=== PATIENT | male | born 1935 | race Caucasian/White ===

== ENCOUNTER → 2016-12-06 | Outpatient (REF) | payer OTHER ==
[2016-12-06 20:22] LABS: ALBUMIN/GLOBULIN RATIO 1.43 (1.00-1.93); BILIRUBIN,TOTAL 0.3 MG/DL (0.2-1.0); CALCIUM LEVEL 10.4 MG/DL (8.8-10.2); CREATININE FOR GFR 1.67 MG/DL (0.70-1.30); GLOMERULAR FILTRATION RATE 42.4 (>35); POTASSIUM SERUM 4.9 MEQ/L (3.5-5.1); TOTAL PROTEIN 6.8 GM/DL (6.4-8.2)
== END ==
LOC: M SFHCADAM 11:58
PROVIDERS: ATTEND Family Medicine
DX: I10 Essential (primary) hypertension (principal)
CPT/HCPCS: 80053; G0463

== ENCOUNTER 2016-12-08 01:40 | Emergency (ER) | payer OTHER ==
[2016-12-08] MEDS ORDERED: LISINOPRIL 10 MG TAB As Ordered ONE (02:28)
--- NOTE | 2016-12-08 05:39 | EDDOCDS ---
Nurse's Notes [facility] Name: Domenico Granados Age: 81 yrs Sex: Male : 1935 Arrival Date: 12/08/2016 Time: 01:40 Bed 5 Private MD: Diagnosis: Essential (primary) hypertension Presentation: 12/08 01:48 Presenting complaint: Patient states: he has been having problems getting his blood cz pressure regulated has spoken with his provider and they halved his dose of pressure medications. Adult Sepsis Screening: The patient does not have new or worsening altered mentation. Patient's respiratory rate is less than 22. Systolic blood pressure is greater than 100. Patient has a qSOFA score of 0- Negative Sepsis Screen. Suicide/Homicide risk assessment- the patient denies having any suicidal and/or homicidal ideations and does not present with any other emotional, behavioral or mental health complaints. Status: Patient is not a instructional support services director or dependent. Transition of care: patient was not received from another setting of care. 01:48 Acuity: RAMIREZ Level 3 cz 01:48 Method Of Arrival: Walkin/Carried/Asstd cz Triage Assessment: 01:53 General: Appears in no apparent distress. cz Historical: - Allergies: Milk/dairy products (Rash); - Home Meds: 1. aspirin 81 mg Oral chew 1 tab once daily 2. atenolol 50 mg oral tab once daily (Last dose: 12/07/2016 08:00) 3. lisinopril 10 mg Oral tab once daily (Last dose: 12/07/2016 18:00) 4. omeprazole 40 mg Oral cpDR 1 cap once daily 5. simvastatin 80 mg Oral tab daily 6. tamsulosin 0.4 mg oral cp24 1 cap once daily 7. triamterene-hydrochlorothiazid 37.5-25 mg Oral cap 1 cap once daily (Last dose: 12/07/2016 08:00) - PMHx: GERD; Hypertension; - PSHx: none; lung surgery right lobe; - Social history: Smoking status: Patient states former smoker of tobacco. No barriers to communication noted, The patient speaks fluent Panamanian, Speaks appropriately for age. - Family history: Not pertinent. - : The pt / caregiver states he / she is not on anticoagulants. Home medication list is obtained from family members. - Exposure Risk Screening:: None identified. Screenin:03 Screening information is obtained from the patient. Fall risk: No risks identified. cf2 Assistance ADL's: requires no assistance with activities of daily living. Abuse/DV Screen: The patient / caregiver reports he/she is: not in a situation that causes fear, pain or injury. Nutritional screening: No deficits noted. Advance Directives: Further advance directive information is declined. home support is adequate. Assessment: 03:03 General: Appears in no apparent distress, comfortable, Behavior is appropriate for age, cf2 cooperative. General: Denies fever, feeling ill, fatigue, chills. Pain: Denies pain. Neurological: No deficits noted. EENT: No deficits noted. Cardiovascular: No deficits noted. Respiratory: No deficits noted. GI: No deficits noted. : No deficits noted. Derm: No deficits noted. Musculoskeletal: No deficits noted. Injury Description: No known injury. 05:21 Reassessment: Patient appears in no apparent distress at this time. Patient denies pain cf2 at this time. Patient states symptoms have improved. Adult Sepsis Screening: The patient does not have new or worsening altered mentation. Patient's respiratory rate is less than 22. Systolic blood pressure is greater than 100. Patient has a qSOFA score of 0- Negative Sepsis Screen. Vital Signs: 01:53 BP 202 / 92; Pulse 67; Resp 16; Temp 96.1; Pulse Ox 97% on R/A; Weight 83.91 kg; Height cz 5 ft. 7 in. (170.18 cm); 01:53 Weight 71.21 kg; cz 02:31 BP 201 / 84 (auto/); cf2 03:06 BP 195 / 81 (auto/); cf2 03:13 Pulse 56 MON; Pulse Ox 98% ; cf2 03:30 BP 181 / 79 (auto/); cf2 03:30 Pulse 54 MON; Pulse Ox 97% ; cf2 03:39 Pulse 60 MON; Pulse Ox 97% ; cf2 04:26 BP 187 / 81; Pulse 58; Resp 18; Temp 97.6(TE); Pulse Ox 97% on R/A; kb5 05:21 BP 180 / 81; Pulse 61; Resp 16; Temp 98.0; Pulse Ox 94% on R/A; Pain 0/10; cf2 01:53 Body Mass Index 24.59 (71.21 kg, 170.18 cm) Vitals: 01:53 Log In Time: December 08, 2016 at 01:40. cz ED Course: 01:42 Patient visited by Maxwell Machado Reg. pm4 01:42 Patient moved to Waiting pm4 01:51 Triage Initiated cz 01:55 Patient moved to 5 cz 01:56 Pb Hull DO is Attending Physician. cs11 01:56 Patient visited by Pb Hull DO. cs11 02:23 Sangeetha De La Cruz RN is Primary Nurse. cf2 02:23 Patient visited by Sangeetha De La Cruz RN. cf2 02:55 Patient visited by Sangeetha De La Cruz RN. cf2 03:03 The patient / caregiver is instructed regarding the plan of care and ED course. Patient cf2 has correct armband on for positive identification. Placed in gown. Bed in low position. Call light in reach. Side rails up X 1. Side rails up X2. NIBP on. Property :Personal belongings accompany Pt. Door closed. Noise minimized. Visitors limited. Verbal reassurance given. Warm blanket given. Pillow given. 03:03 No IV's were initiated during this patient's visit. No procedures done that require cf2 assistance. 03:10 [facility] Payment Agreement was scanned into [employer] and attached to record. hs2 03:41 Patient visited by Sangeetha De La Cruz RN. cf2 03:41 Patient visited by Sangeetha De La Cruz RN. cf2 04:16 Patient visited by Sangeetha De La Cruz RN. cf2 04:27 Patient visited by Segun Hurst PCA. kb5 04:55 Patient visited by Sangeetha De La Cruz RN. cf2 05:17 Cody Rhodes MD is Referral Physician. cs11 05:20 Patient visited by Sangeetha De La Cruz RN. cf2 Administered Medications: 02:30 Drug: Lisinopril 10 mg [lisinopril 10 mg tablet (1 tabs)] Route: PO; cf2 05:22 Follow up: Response: No significant change. cf2 Order Results: There are currently no results for this order. Outcome: 05:18 Discharge ordered by Provider. cs11 05:21 Discharge Assessment: Patient awake, alert and oriented x 3. No cognitive and/or cf2 functional deficits noted. Patient verbalized understanding of disposition instructions. Patient awake and alert. Oriented to person, place and time. patient administered narcotics - no. The following High Risk Discharge criteria are identified: None. Discharged to home ambulatory, with family, with significant other. Condition: good Condition: stable Condition: improved. Discharge instructions given to patient, Instructed on discharge instructions, follow up and referral plans. medication usage. No special radiology studies were completed. 05:38 Patient left the ED. cf2 Signatures: Juan Miguel Ballard, RN RN cz Segun Hurst, SENIOR EDITOR SENIOR EDITOR kb5 Pb Hull, DO cs11 Deirrde Catalan, Reg Reg hs2 Sangeetha De La Cruz RN RN cf2 Maxwell Machado, Reg Reg pm4 ISABELA
--- NOTE | 2016-12-08 05:39 | EDDOCDS ---
Physician Documentation [facility] Name: Domenico Granados Age: 81 yrs Sex: Male : 1935 Arrival Date: 12/08/2016 Time: 01:40 Bed 5 Private MD: Disposition: 12/08/16 05:18 Discharged to Home/Self Care. Impression: Essential (primary) hypertension. - Condition is Stable. - Medication Reconciliation, Local Pharmacy Hours form. - Follow up: Cody Rhodes MD; When: Call to arrange an appointment; Reason: To establish care. - Problem is an ongoing problem. - Symptoms have improved. Historical: - Allergies: Milk/dairy products (Rash); - Home Meds: 1. aspirin 81 mg Oral chew 1 tab once daily 2. atenolol 50 mg oral tab once daily (Last dose: 12/07/2016 08:00) 3. lisinopril 10 mg Oral tab once daily (Last dose: 12/07/2016 18:00) 4. omeprazole 40 mg Oral cpDR 1 cap once daily 5. simvastatin 80 mg Oral tab daily 6. tamsulosin 0.4 mg oral cp24 1 cap once daily 7. triamterene-hydrochlorothiazid 37.5-25 mg Oral cap 1 cap once daily (Last dose: 12/07/2016 08:00) - PMHx: GERD; Hypertension; - PSHx: none; lung surgery right lobe; - Social history: Smoking status: Patient states former smoker of tobacco. No barriers to communication noted, The patient speaks fluent Wallisian, Speaks appropriately for age. - Family history: Not pertinent. - : The pt / caregiver states he / she is not on anticoagulants. Home medication list is obtained from family members. - Exposure Risk Screening:: None identified. Vital Signs: 12/08 01:53 BP 202 / 92; Pulse 67; Resp 16; Temp 96.1; Pulse Ox 97% on R/A; Weight 83.91 kg / cz 184.99 lbs; Height 5 ft. 7 in. (170.18 cm); 01:53 Weight 71.21 kg / 156.99 lbs; cz 02:31 BP 201 / 84 (auto/); cf2 03:06 BP 195 / 81 (auto/); cf2 03:13 Pulse 56 MON; Pulse Ox 98% ; cf2 03:30 BP 181 / 79 (auto/); cf2 03:30 Pulse 54 MON; Pulse Ox 97% ; cf2 03:39 Pulse 60 MON; Pulse Ox 97% ; cf2 04:26 BP 187 / 81; Pulse 58; Resp 18; Temp 97.6(TE); Pulse Ox 97% on R/A; kb5 05:21 BP 180 / 81; Pulse 61; Resp 16; Temp 98.0; Pulse Ox 94% on R/A; Pain 0/10; cf2 01:53 Body Mass Index 24.59 (71.21 kg, 170.18 cm) cz MDM: 02:11 Lisinopril 10 mg PO once ordered. cs11 02:58 Financial registration complete. hs2 03:10 [facility] Payment Agreement was scanned into [employer]([facility]) and attached to record. hs2 Administered Medications: 02:30 Drug: Lisinopril 10 mg [lisinopril 10 mg tablet (1 tabs)] Route: PO; cf2 05:22 Follow up: Response: No significant change. cf2 Signatures: Juan Miguel Ballard, RN RN cz Pb Hull DO DO cs11 Deirdre Catalan, Reg Reg hs2 Sangeetha De La CruzRN RN cf2 The chart was reviewed and I authenticate all verbal orders and agree with the evaluation and treatment provided.Attachments: 03:10 [facility] Payment Agreement hs2 MTDD
--- NOTE | 2016-12-10 06:39 | EDDOCDS ---
Nurse's Notes [facility] Name: Domenico Granados Age: 81 yrs Sex: Male : 1935 Arrival Date: 12/08/2016 Time: 01:40 Bed 5 Private MD: Diagnosis: Essential (primary) hypertension Presentation: 12/08 01:48 Presenting complaint: Patient states: he has been having problems getting his blood cz pressure regulated has spoken with his provider and they halved his dose of pressure medications. Adult Sepsis Screening: The patient does not have new or worsening altered mentation. Patient's respiratory rate is less than 22. Systolic blood pressure is greater than 100. Patient has a qSOFA score of 0- Negative Sepsis Screen. Suicide/Homicide risk assessment- the patient denies having any suicidal and/or homicidal ideations and does not present with any other emotional, behavioral or mental health complaints. Status: Patient is not a sales agent protective service or dependent. Transition of care: patient was not received from another setting of care. 01:48 Acuity: RAMIREZ Level 3 cz 01:48 Method Of Arrival: Walkin/Carried/Asstd cz Triage Assessment: 01:53 General: Appears in no apparent distress. cz Historical: - Allergies: Milk/dairy products (Rash); - Home Meds: 1. aspirin 81 mg Oral chew 1 tab once daily 2. atenolol 50 mg oral tab once daily (Last dose: 12/07/2016 08:00) 3. lisinopril 10 mg Oral tab once daily (Last dose: 12/07/2016 18:00) 4. omeprazole 40 mg Oral cpDR 1 cap once daily 5. simvastatin 80 mg Oral tab daily 6. tamsulosin 0.4 mg oral cp24 1 cap once daily 7. triamterene-hydrochlorothiazid 37.5-25 mg Oral cap 1 cap once daily (Last dose: 12/07/2016 08:00) - PMHx: GERD; Hypertension; - PSHx: none; lung surgery right lobe; - Social history: Smoking status: Patient states former smoker of tobacco. No barriers to communication noted, The patient speaks fluent [place]ib[place]ian, Speaks appropriately for age. - Family history: Not pertinent. - : The pt / caregiver states he / she is not on anticoagulants. Home medication list is obtained from family members. - Exposure Risk Screening:: None identified. Screenin:03 Screening information is obtained from the patient. Fall risk: No risks identified. cf2 Assistance ADL's: requires no assistance with activities of daily living. Abuse/DV Screen: The patient / caregiver reports he/she is: not in a situation that causes fear, pain or injury. Nutritional screening: No deficits noted. Advance Directives: Further advance directive information is declined. home support is adequate. Assessment: 03:03 General: Appears in no apparent distress, comfortable, Behavior is appropriate for age, cf2 cooperative. General: Denies fever, feeling ill, fatigue, chills. Pain: Denies pain. Neurological: No deficits noted. EENT: No deficits noted. Cardiovascular: No deficits noted. Respiratory: No deficits noted. GI: No deficits noted. : No deficits noted. Derm: No deficits noted. Musculoskeletal: No deficits noted. Injury Description: No known injury. 05:21 Reassessment: Patient appears in no apparent distress at this time. Patient denies pain cf2 at this time. Patient states symptoms have improved. Adult Sepsis Screening: The patient does not have new or worsening altered mentation. Patient's respiratory rate is less than 22. Systolic blood pressure is greater than 100. Patient has a qSOFA score of 0- Negative Sepsis Screen. Vital Signs: 01:53 BP 202 / 92; Pulse 67; Resp 16; Temp 96.1; Pulse Ox 97% on R/A; Weight 83.91 kg; Height cz 5 ft. 7 in. (170.18 cm); 01:53 Weight 71.21 kg; cz 02:31 BP 201 / 84 (auto/); cf2 03:06 BP 195 / 81 (auto/); cf2 03:13 Pulse 56 MON; Pulse Ox 98% ; cf2 03:30 BP 181 / 79 (auto/); cf2 03:30 Pulse 54 MON; Pulse Ox 97% ; cf2 03:39 Pulse 60 MON; Pulse Ox 97% ; cf2 04:26 BP 187 / 81; Pulse 58; Resp 18; Temp 97.6(TE); Pulse Ox 97% on R/A; kb5 05:21 BP 180 / 81; Pulse 61; Resp 16; Temp 98.0; Pulse Ox 94% on R/A; Pain 0/10; cf2 01:53 Body Mass Index 24.59 (71.21 kg, 170.18 cm) Vitals: 01:53 Log In Time: December 08, 2016 at 01:40. cz ED Course: 01:42 Patient visited by Maxwell Machado Reg. pm4 01:42 Patient moved to Waiting pm4 01:51 Triage Initiated cz 01:55 Patient moved to 5 cz 01:56 Pb Hull DO is Attending Physician. cs11 01:56 Patient visited by Pb Hull DO. cs11 02:23 Sangeetha De La Cruz RN is Primary Nurse. cf2 02:23 Patient visited by Sangeetha De La Cruz RN. cf2 02:55 Patient visited by Sangeetha De La Cruz RN. cf2 03:03 The patient / caregiver is instructed regarding the plan of care and ED course. Patient cf2 has correct armband on for positive identification. Placed in gown. Bed in low position. Call light in reach. Side rails up X 1. Side rails up X2. NIBP on. Property :Personal belongings accompany Pt. Door closed. Noise minimized. Visitors limited. Verbal reassurance given. Warm blanket given. Pillow given. 03:03 No IV's were initiated during this patient's visit. No procedures done that require cf2 assistance. 03:10 [facility] Payment Agreement was scanned into [employer] and attached to record. hs2 03:41 Patient visited by Sangeetha De La Cruz RN. cf2 03:41 Patient visited by Sangeetha De La Cruz RN. cf2 04:16 Patient visited by Sangeetha De La Cruz RN. cf2 04:27 Patient visited by Segun Hurst PCA. kb5 04:55 Patient visited by Sangeetha De La Cruz RN. cf2 05:17 Cody Rhodes MD is Referral Physician. cs11 05:20 Patient visited by Sangeetha De La Cruz RN. cf2 14:19 T-Sheet-- Draft Copy was scanned into [employer] and attached to record. gb Administered Medications: 02:30 Drug: Lisinopril 10 mg [lisinopril 10 mg tablet (1 tabs)] Route: PO; cf2 05:22 Follow up: Response: No significant change. cf2 Order Results: There are currently no results for this order. Outcome: 05:18 Discharge ordered by Provider. cs11 05:21 Discharge Assessment: Patient awake, alert and oriented x 3. No cognitive and/or cf2 functional deficits noted. Patient verbalized understanding of disposition instructions. Patient awake and alert. Oriented to person, place and time. patient administered narcotics - no. The following High Risk Discharge criteria are identified: None. Discharged to home ambulatory, with family, with significant other. Condition: good Condition: stable Condition: improved. Discharge instructions given to patient, Instructed on discharge instructions, follow up and referral plans. medication usage. No special radiology studies were completed. 05:38 Patient left the ED. cf2 Signatures: Juan Miguel Ballard, RN RN cz Ivon Whittaker, Reg Reg gb Segun Hurst, LACE FINISHER LACE FINISHER kb5 Pb Hull, DO cs11 Deirdre Catalan, Reg Reg hs2 Sangeetha De La Cruz RN RN cf2 Maxwell Machado, Reg Reg pm4 Chart Complete ISABELA
--- NOTE | 2016-12-10 06:39 | EDDOCDS ---
Physician Documentation [facility] Name: Domenico Granados Age: 81 yrs Sex: Male : 1935 Arrival Date: 12/08/2016 Time: 01:40 Bed 5 Private MD: Disposition: 12/08/16 05:18 Discharged to Home/Self Care. Impression: Essential (primary) hypertension. - Condition is Stable. - Medication Reconciliation, Local Pharmacy Hours form. - Follow up: Cody Rhodes MD; When: Call to arrange an appointment; Reason: To establish care. - Problem is an ongoing problem. - Symptoms have improved. Historical: - Allergies: Milk/dairy products (Rash); - Home Meds: 1. aspirin 81 mg Oral chew 1 tab once daily 2. atenolol 50 mg oral tab once daily (Last dose: 12/07/2016 08:00) 3. lisinopril 10 mg Oral tab once daily (Last dose: 12/07/2016 18:00) 4. omeprazole 40 mg Oral cpDR 1 cap once daily 5. simvastatin 80 mg Oral tab daily 6. tamsulosin 0.4 mg oral cp24 1 cap once daily 7. triamterene-hydrochlorothiazid 37.5-25 mg Oral cap 1 cap once daily (Last dose: 12/07/2016 08:00) - PMHx: GERD; Hypertension; - PSHx: none; lung surgery right lobe; - Social history: Smoking status: Patient states former smoker of tobacco. No barriers to communication noted, The patient speaks fluent Serbian, Speaks appropriately for age. - Family history: Not pertinent. - : The pt / caregiver states he / she is not on anticoagulants. Home medication list is obtained from family members. - Exposure Risk Screening:: None identified. Vital Signs: 12/08 01:53 BP 202 / 92; Pulse 67; Resp 16; Temp 96.1; Pulse Ox 97% on R/A; Weight 83.91 kg / cz 184.99 lbs; Height 5 ft. 7 in. (170.18 cm); 01:53 Weight 71.21 kg / 156.99 lbs; cz 02:31 BP 201 / 84 (auto/); cf2 03:06 BP 195 / 81 (auto/); cf2 03:13 Pulse 56 MON; Pulse Ox 98% ; cf2 03:30 BP 181 / 79 (auto/); cf2 03:30 Pulse 54 MON; Pulse Ox 97% ; cf2 03:39 Pulse 60 MON; Pulse Ox 97% ; cf2 04:26 BP 187 / 81; Pulse 58; Resp 18; Temp 97.6(TE); Pulse Ox 97% on R/A; kb5 05:21 BP 180 / 81; Pulse 61; Resp 16; Temp 98.0; Pulse Ox 94% on R/A; Pain 0/10; cf2 01:53 Body Mass Index 24.59 (71.21 kg, 170.18 cm) cz MDM: 02:11 Lisinopril 10 mg PO once ordered. cs11 02:58 Financial registration complete. hs2 03:10 [facility] Payment Agreement was scanned into [employer] and attached to record. hs2 14:19 T-Sheet-- Draft Copy was scanned into [employer] and attached to record. gb Administered Medications: 02:30 Drug: Lisinopril 10 mg [lisinopril 10 mg tablet (1 tabs)] Route: PO; cf2 05:22 Follow up: Response: No significant change. cf2 Signatures: Juan Miguel Ballard, RN RN cz Ivon Whittaker, Reg Reg gb Pb Hull, DO cs11 Deirdre Catalan, Reg Reg hs2 Sangeetha De La Cruz,RN RN cf2 The chart was reviewed and I authenticate all verbal orders and agree with the evaluation and treatment provided.Attachments: 03:10 [facility] Payment Agreement hs2 14:19 T-Sheet-- Draft Copy gb Chart Complete MTDD
--- NOTE | 2016-12-10 06:39 | EDDOCDS ---
Physician Documentation [facility] Name: Domenico Granados Age: 81 yrs Sex: Male : 1935 Arrival Date: 12/08/2016 Time: 01:40 Bed 5 Private MD: Disposition: 12/08/16 05:18 Discharged to Home/Self Care. Impression: Essential (primary) hypertension. - Condition is Stable. - Medication Reconciliation, Local Pharmacy Hours form. - Follow up: Cody Rhodes MD; When: Call to arrange an appointment; Reason: To establish care. - Problem is an ongoing problem. - Symptoms have improved. Historical: - Allergies: Milk/dairy products (Rash); - Home Meds: 1. aspirin 81 mg Oral chew 1 tab once daily 2. atenolol 50 mg oral tab once daily (Last dose: 12/07/2016 08:00) 3. lisinopril 10 mg Oral tab once daily (Last dose: 12/07/2016 18:00) 4. omeprazole 40 mg Oral cpDR 1 cap once daily 5. simvastatin 80 mg Oral tab daily 6. tamsulosin 0.4 mg oral cp24 1 cap once daily 7. triamterene-hydrochlorothiazid 37.5-25 mg Oral cap 1 cap once daily (Last dose: 12/07/2016 08:00) - PMHx: GERD; Hypertension; - PSHx: none; lung surgery right lobe; - Social history: Smoking status: Patient states former smoker of tobacco. No barriers to communication noted, The patient speaks fluent [place], Speaks appropriately for age. - Family history: Not pertinent. - : The pt / caregiver states he / she is not on anticoagulants. Home medication list is obtained from family members. - Exposure Risk Screening:: None identified. Vital Signs: 12/08 01:53 BP 202 / 92; Pulse 67; Resp 16; Temp 96.1; Pulse Ox 97% on R/A; Weight 83.91 kg / cz 184.99 lbs; Height 5 ft. 7 in. (170.18 cm); 01:53 Weight 71.21 kg / 156.99 lbs; cz 02:31 BP 201 / 84 (auto/); cf2 03:06 BP 195 / 81 (auto/); cf2 03:13 Pulse 56 MON; Pulse Ox 98% ; cf2 03:30 BP 181 / 79 (auto/); cf2 03:30 Pulse 54 MON; Pulse Ox 97% ; cf2 03:39 Pulse 60 MON; Pulse Ox 97% ; cf2 04:26 BP 187 / 81; Pulse 58; Resp 18; Temp 97.6(TE); Pulse Ox 97% on R/A; kb5 05:21 BP 180 / 81; Pulse 61; Resp 16; Temp 98.0; Pulse Ox 94% on R/A; Pain 0/10; cf2 01:53 Body Mass Index 24.59 (71.21 kg, 170.18 cm) cz MDM: 02:11 Lisinopril 10 mg PO once ordered. cs11 02:58 Financial registration complete. hs2 03:10 [facility] Payment Agreement was scanned into [employer] and attached to record. hs2 14:19 T-Sheet-- Draft Copy was scanned into [employer] and attached to record. gb Administered Medications: 02:30 Drug: Lisinopril 10 mg [lisinopril 10 mg tablet (1 tabs)] Route: PO; cf2 05:22 Follow up: Response: No significant change. cf2 Signatures: Juan Miguel Ballard, RN RN cz Ivon Whittaker, Reg Reg gb Pb Hull, DO cs11 Deirdre Catalan, Reg Reg hs2 Sangeetha De La Cruz,RN RN cf2 The chart was reviewed and I authenticate all verbal orders and agree with the evaluation and treatment provided.Attachments: 03:10 [facility] Payment Agreement hs2 14:19 T-Sheet-- Draft Copy gb Chart Complete MTDD
== END 2016-12-08 05:38 | disposition home or self-care (01) ==
LOC: M ED 01:40
DX: I10 Essential (primary) hypertension (principal); Z91.19 Patient's noncompliance with other medical treatment and regimen; K21.9 Gastro-esophageal reflux disease without esophagitis; Z87.891 Personal history of nicotine dependence; Z79.899 Other long term (current) drug therapy; Z79.82 Long term (current) use of aspirin; Z91.011 Allergy to milk products

== ENCOUNTER → 2017-01-01 | Outpatient (CLI) | payer OTHER ==
[~2017-01-01] MED LIST: GASTROGRAFIN SOLUTION 30ML (Q9963) As Ordered ONE; ISOVUE-370 76% 100ML VIAL (Q9967) As Ordered ONE
--- NOTE | 2017-01-01 17:10 | REP ---
Urinary tract sonography and renal artery Doppler flow assessment: History: Hypertension, chronic kidney disease stage III. Morphologic findings: Scanning at the level of the urinary bladder shows smooth bladder euceda. Heterogeneous enlargement prostate is seen elevating the bladder base. Prostate measures 5.6 x 5.0 x 5.8 cm. Renal cortical echogenicity pattern is normal and renal contours are smooth on both sides. There is no evidence of hydronephrosis on either side. Right renal dimensions are 8.7 x 5.2 x 4.7 cm. The left kidney measures 10.2 x 4.7 x 4.7 cm. 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 Prostate enlargement. No hydronephrosis seen. Renal artery Doppler flow assessment: Peak systolic flow velocity in the abdominal aorta at the level of the main renal arteries is 59.9 cm/sec. Peak systolic flow velocity in the right main renal artery is 129 cm/sec and that in the left main renal artery is 114.5 cm/sec. Renal to aortic flow velocity ratios are therefore normal at 2.2 and 1.9 on the right and left respectively. Resistive indices and acceleration times are measured in the upper, mid- and intralobar arteries bilaterally. These values are normal. Impression: No direct or indirect evidence of renal artery stenosis seen. Signed by Kashmir Monsivais MD 01/02/2017 08:29 A
== END ==
LOC: M RAD 09:45
PROVIDERS: ATTEND Internal Medicine Cardiovascular Disease
DX: I10 Essential (primary) hypertension (principal)
CPT/HCPCS: 76775; 93975; Q9963; Q9967

== ENCOUNTER → 2017-05-21 | Outpatient (REF) | payer OTHER | LOC: M LAB REF 17:07 | PROVIDERS: ATTEND Internal Medicine Nephrology | DX: E83.52 Hypercalcemia (principal) ==

== ENCOUNTER 2017-11-20 14:06 | Emergency (ER) | payer OTHER ==
[~2017-11-20] VITALS: Ht 170.2 cm; Wt 66.4 kg
[2017-11-20 14:07] VITALS: BP 140/62
[2017-11-20] MEDS ORDERED: SPIR25TA2 (14:17)
[2017-11-20] MEDS ORDERED: DOXY100T16 (14:17)
[2017-11-20] MEDS ORDERED: SIMV80TA (14:17)
[2017-11-20] MEDS ORDERED: OMEP40CA2 (14:17)
[2017-11-20] MEDS ORDERED: FLOM5CAP PO (14:17)
[2017-11-20] MEDS ORDERED: LISI-538 PO (14:17)
[2017-11-20] MEDS ORDERED: ASPI81TA85 PO (14:17)
[2017-11-20] MEDS ORDERED: ATEN100T (14:17)
[2017-11-20] MEDS ORDERED: FURO20TA2 PO (14:17)
[2017-11-20] MEDS ORDERED: VITA100066 PO (14:17)
== END 2017-11-20 17:05 | disposition left against medical advice (07) ==
LOC: M ED 14:06
DX: Z53.21 Procedure and treatment not carried out due to patient leaving prior to being seen by health care provider (principal)

== ENCOUNTER → 2017-11-27 | Outpatient (REF) | payer OTHER ==
[2017-11-27 12:52] LABS: BASO # 0.1 10^3/uL (0.0-0.2); BASO % 0.6 % (0.0-1.0); EOS % 0.2 % (0.0-3.0); HEMATOCRIT 37.7 % (42.0-52.0); IMMATURE GRANULOCYTE % 0.4 % (0-0); LYMPH # 0.9 10^3/uL (1.5-4.5); MEAN CORPUSCULAR HEMOGLOBIN 29.6 pg (27.0-33.0); MEAN CORPUSCULAR HGB CONC 31.8 g/dl (32.0-36.5); MEAN CORPUSCULAR VOLUME 93.1 fl (80.0-96.0); MONO # 0.7 10^3/uL (0.0-0.8); MONO % 8.3 % (0.0-5.0); NEUTROPHILS # 6.8 10^3/uL (1.8-7.7); NEUTROPHILS % 79.5 % (36.0-66.0); PLATELET COUNT, AUTOMATED 245 10^3/uL (150-450); RED BLOOD COUNT 4.05 10^6/uL (4.30-6.10); RED CELL DISTRIBUTION WIDTH 12.8 % (11.5-14.5); WHITE BLOOD COUNT 8.5 10^3/uL (4.0-10.0)
[2017-11-27 13:15] LABS: ALBUMIN 3.7 GM/DL (3.2-5.2); ALBUMIN/GLOBULIN RATIO 1.09 (1.00-1.93); ALKALINE PHOSPHATASE 75 U/L (45-117); ALT/SGPT 21 U/L (12-78); ANION GAP 9 MEQ/L (8-16); AST/SGOT 19 U/L (7-37); BILIRUBIN,TOTAL 0.4 MG/DL (0.2-1.0); BLOOD UREA NITROGEN 18 MG/DL (7-18); CALCIUM LEVEL 11.2 MG/DL (8.8-10.2); CARBON DIOXIDE LEVEL 29 MEQ/L (21-32); CHLORIDE LEVEL 100 MEQ/L (98-107); CREATININE FOR GFR 1.58 MG/DL (0.70-1.30); GLUCOSE, FASTING 119 MG/DL (83-110); POTASSIUM SERUM 3.7 MEQ/L (3.5-5.1); SODIUM LEVEL 138 MEQ/L (136-145); TOTAL PROTEIN 7.1 GM/DL (6.4-8.2)
== END ==
LOC: M SFHCADAM 09:29
DX: R42 Dizziness and giddiness (principal)
CPT/HCPCS: 80053

== ENCOUNTER → 2018-08-22 | Outpatient (REF) | payer OTHER ==
[2018-08-22 14:21] LABS: FREE T4 1.38 NG/DL (0.76-1.46)
== END ==
LOC: M LAB REF 13:36
DX: E03.9 Hypothyroidism, unspecified (principal)
CPT/HCPCS: 84443

== ENCOUNTER → 2019-01-27 | Outpatient (REF) | payer MEDICARE ==
[~2019-01-27] MED LIST changes: +ASPI81TA85 PO; +ATEN100T; +DOXY100T16; +FLOM0.4C39 PO; +FURO20TA2 PO; -GASTROGRAFIN SOLUTION 30ML (Q9963) As Ordered ONE; -ISOVUE-370 76% 100ML VIAL (Q9967) As Ordered ONE; +LISI-538 PO; +OMEP40CA2; +SIMV80TA13; +SPIR-10; +VITA100066 PO
[2019-01-27 19:34] LABS: BASO % 0.6 % (0.0-1.0); EOS # 0.2 10^3/uL (0.0-0.50); EOS % 3.1 % (0.0-3.0); HEMATOCRIT 38.9 % (42.0-52.0); HEMOGLOBIN 12.6 g/dl (13.5-17.5); LYMPH # 1.4 10^3/uL (1.5-4.5); LYMPH % 23.1 % (24.0-44.0); MEAN CORPUSCULAR HEMOGLOBIN 31.1 pg (27.0-33.0); MEAN CORPUSCULAR HGB CONC 32.4 g/dl (32.0-36.5); MONO # 0.6 10^3/uL (0.0-0.8); MONO % 10.2 % (0.0-5.0); NEUTROPHILS # 3.9 10^3/uL (1.8-7.7); NEUTROPHILS % 62.5 % (36.0-66.0); PLATELET COUNT, AUTOMATED 160 10^3/uL (150-450); RED BLOOD COUNT 4.05 10^6/uL (4.30-6.10); WHITE BLOOD COUNT 6.2 10^3/uL (4.0-10.0)
[2019-01-27 19:56] LABS: ALBUMIN 3.8 GM/DL (3.2-5.2); BILIRUBIN,TOTAL 0.3 MG/DL (0.2-1.0); CALCIUM LEVEL 10.4 MG/DL (8.8-10.2); CREATININE FOR GFR 1.84 MG/DL (0.70-1.30); GLOMERULAR FILTRATION RATE 37.7 (>35); POTASSIUM SERUM 4.9 MEQ/L (3.5-5.1); TOTAL PROTEIN 6.7 GM/DL (6.4-8.2)
== END ==
LOC: M SFHCADAM 12:04
PROVIDERS: ATTEND Family Medicine
DX: I10 Essential (primary) hypertension (principal)
CPT/HCPCS: 80053; 85025; G0463

== ENCOUNTER → 2019-11-24 | Outpatient (REF) | payer MEDICARE ==
[~2019-11-24] MED LIST changes: -DOXY100T16; +DOXY100T27; -OMEP40CA2; +OMEP40CA97
[2019-11-24 13:14] LABS: BASO % 0.9 % (0.0-1.0); EOS # 0.2 10^3/uL (0.0-0.5); EOS % 4.2 % (0.0-3.0); HEMATOCRIT 36.3 % (42.0-52.0); HEMOGLOBIN 11.4 g/dl (13.5-17.5); LYMPH # 1.2 10^3/uL (1.5-5.0); LYMPH % 26.7 % (24.0-44.0); MEAN CORPUSCULAR HEMOGLOBIN 32.1 pg (27.0-33.0); MEAN CORPUSCULAR HGB CONC 31.4 g/dl (32.0-36.5); MEAN CORPUSCULAR VOLUME 102.3 fl (80.0-96.0); MONO # 0.5 10^3/uL (0.0-0.8); MONO % 11.9 % (0.0-5.0); NEUTROPHILS # 2.5 10^3/uL (1.5-8.5); NEUTROPHILS % 55.9 % (36.0-66.0); PLATELET COUNT, AUTOMATED 158 10^3/uL (150-450); RED BLOOD COUNT 3.55 10^6/uL (4.30-6.10); WHITE BLOOD COUNT 4.5 10^3/uL (4.0-10.0)
[2019-11-24 14:00] LABS: ALBUMIN 3.4 GM/DL (3.2-5.2); BILIRUBIN,TOTAL 0.4 MG/DL (0.2-1.0); CALCIUM LEVEL 10.1 MG/DL (8.8-10.2); CREATININE FOR GFR 1.68 MG/DL (0.70-1.30); FREE T4 1.11 NG/DL (0.76-1.46); GLOMERULAR FILTRATION RATE 41.7 (>35); POTASSIUM SERUM 3.7 MEQ/L (3.5-5.1); THYROID STIMULATING HORMONE 2.55 uIU/ML (0.358-3.740); TOTAL PROTEIN 6.2 GM/DL (6.4-8.2)
== END ==
LOC: M SFHCADAM 09:05
PROVIDERS: ATTEND Family Medicine
DX: Z00.00 Encounter for general adult medical examination without abnormal findings (principal); Z79.82 Long term (current) use of aspirin; Z79.899 Other long term (current) drug therapy

== ENCOUNTER → 2020-05-31 | Outpatient (CLI) | payer MEDICARE ==
[~2020-05-31] MED LIST changes: -ASPI81TA85 PO; +ASPI81TA86 PO
--- NOTE | 2020-06-01 09:44 | REP ---
REASON FOR EXAM: Peripheral edema. The latest prior for comparison is a portable examination obtained 01/17/2012 and the next latest prior a two-view examination of 02/15/2011 both reviewed. There are chronic right lung base changes, status quo. Once again, right hilar and right upper lobe surgical clips status quo. The heart is not enlarged. No new abnormal opacities have developed. There is no significant change in the appearance of the osseous structures. The lateral view shows chronic thickening of the major fissure and an anterior mid level staple line, all stable in appearance. There is some lung field hyperexpansion status quo. There is no change in the osseous structures. IMPRESSION: Stable appearing chronic changes. Electronically Signed by Anderson Ball DO 06/01/2020 05:19 P
== END ==
LOC: M ADAMS 16:03
PROVIDERS: ATTEND Family Medicine
DX: R60.9 Edema, unspecified (principal)
CPT/HCPCS: 71046; 80053; 83880; 84439; 84443; G0463

== ENCOUNTER → 2020-05-31 | Outpatient (REF) | payer MEDICARE ==
[~2020-05-31] MED LIST changes: +ASPI81TA85 PO; -ASPI81TA86 PO
[2020-06-01 14:59] LABS: ALBUMIN 2.8 GM/DL (3.2-5.2); BILIRUBIN,TOTAL 0.2 MG/DL (0.2-1.0); CALCIUM LEVEL 10.1 MG/DL (8.8-10.2); CREATININE FOR GFR 1.74 MG/DL (0.70-1.30); FREE T4 1.08 NG/DL (0.76-1.46); GLOMERULAR FILTRATION RATE 40.1 (>35); POTASSIUM SERUM 4.9 MEQ/L (3.5-5.1); THYROID STIMULATING HORMONE 1.64 uIU/ML (0.358-3.740); TOTAL PROTEIN 5.5 GM/DL (6.4-8.2)
== END ==
LOC: M SFHCADAM 15:59
PROVIDERS: ATTEND Family Medicine
DX: R60.9 Edema, unspecified (principal)

== ENCOUNTER → 2020-07-27 | Outpatient (REF) | payer MEDICARE ==
[~2020-07-27] MED LIST changes: -ASPI81TA85 PO; +ASPI81TA86 PO
[2020-07-27 16:14] LABS: ALBUMIN 2.6 GM/DL (3.2-5.2); BILIRUBIN,TOTAL 0.4 MG/DL (0.2-1.0); CALCIUM LEVEL 9.6 MG/DL (8.8-10.2); CREATININE FOR GFR 1.48 MG/DL (0.70-1.30); GLOMERULAR FILTRATION RATE 48.3 (>35); POTASSIUM SERUM 3.8 MEQ/L (3.5-5.1); TOTAL PROTEIN 5.1 GM/DL (6.4-8.2)
== END ==
LOC: M LABDRWAD 09:50
PROVIDERS: ATTEND Family Medicine
DX: R60.9 Edema, unspecified (principal)

== ENCOUNTER → 2020-09-07 | Outpatient (REF) | payer MEDICARE | LOC: M LAB REF 12:33 | PROVIDERS: ATTEND Physician Assistant | DX: L03.012 Cellulitis of left finger (principal) ==

== ENCOUNTER → 2020-09-23 | Outpatient (REF) | payer MEDICARE ==
[2020-09-23 13:00] LABS: ALBUMIN 2.4 GM/DL (3.2-5.2); BILIRUBIN,TOTAL 0.2 MG/DL (0.2-1.0); CALCIUM LEVEL 9.9 MG/DL (8.8-10.2); CREATININE FOR GFR 1.76 MG/DL (0.70-1.30); GLOMERULAR FILTRATION RATE 39.6 (>35); POTASSIUM SERUM 4.6 MEQ/L (3.5-5.1); TOTAL PROTEIN 5.5 GM/DL (6.4-8.2)
== END ==
LOC: M SFHCADAM 10:16
PROVIDERS: ATTEND Family Medicine
DX: R60.0 Localized edema (principal)
CPT/HCPCS: 80053; 83880; G0463

== ENCOUNTER 2021-09-29 11:17 | Inpatient (IN) | payer MEDICARE ==
[~2021-09-29] VITALS: Ht 165.1 cm; Wt 52.2 kg
[~2021-09-29 11:17] MED LIST changes: -ATEN100T; +ATEN100T PO; -LISI-538 PO; +LISI20TA33 PO; +OMEP40CA4 PO; -OMEP40CA97; -SPIR-10; +SPIR-10 PO
[2021-09-29 12:27] LABS: BASO # 0.1 10^3/uL (0.0-0.2); BASO % 0.3 % (0.0-1.0); EOS % 0.1 % (0.0-3.0); HEMATOCRIT 34.1 % (42.0-52.0); HEMOGLOBIN 10.9 g/dl (13.5-17.5); LYMPH % 6.1 % (24.0-44.0); MEAN CORPUSCULAR HEMOGLOBIN 29.9 pg (27.0-33.0); MEAN CORPUSCULAR VOLUME 93.7 fl (80.0-96.0); MONO # 1.2 10^3/uL (0.0-0.8); MONO % 7.5 % (2.0-8.0); NEUTROPHILS # 13.4 10^3/uL (1.5-8.5); NEUTROPHILS % 84.4 % (36.0-66.0); PLATELET COUNT, AUTOMATED 456 10^3/uL (150-450); RED BLOOD COUNT 3.64 10^6/uL (4.30-6.10); WHITE BLOOD COUNT 15.9 10^3/uL (4.0-10.0)
--- NOTE | 2021-09-29 12:28 | REP ---
INDICATION: DYSPNEA/COUGH. COMPARISON: 05/31/2020. TECHNIQUE: Single portable AP view of the chest was performed. FINDINGS: There is stable mild elevation of the right hemidiaphragm. No acute infiltrate or pulmonary edema is seen. The heart is normal in size. There is calcification and tortuosity of the thoracic aorta. The mediastinal silhouette is unchanged. Multiple metallic clips overlie the mediastinal region and right upper lobe. IMPRESSION: No acute pulmonary disease. <Electronically signed by Rony Blackburn > 09/29/21 [id number]
[2021-09-29 13:05] LABS: ALBUMIN 1.9 GM/DL (3.2-5.2); ALT/SGPT 13 U/L (12-78); BILIRUBIN,DIRECT 0.2 MG/DL (0.0-0.2); BILIRUBIN,TOTAL 0.5 MG/DL (0.2-1.0); BLOOD UREA NITROGEN 88 MG/DL (7-18); CALCIUM LEVEL 10.3 MG/DL (8.8-10.2); CARBON DIOXIDE LEVEL 28 MEQ/L (21-32); CHLORIDE LEVEL 96 MEQ/L (98-107); CK-MB VALUE MASS 2.1 NG/ML (<3.6); CPK CREATINE PHOSPHOKINASE 171 U/L (39-308); CREATININE FOR GFR 4.52 MG/DL (0.70-1.30); GLOMERULAR FILTRATION RATE 13.3 (>35); GLUCOSE, FASTING 112 MG/DL (70-100); MB/CK RELATIVE INDEX 1.23 (< OR =4); POTASSIUM SERUM 4.1 MEQ/L (3.5-5.1); SODIUM LEVEL 135 MEQ/L (136-145); TOTAL PROTEIN 6.8 GM/DL (6.4-8.2); TROPONIN I < 0.02 NG/ML (< 0.10)
--- NOTE | 2021-09-29 13:19 | REP ---
INDICATION: trauma, confusion. COMPARISON: 10/22/2015. TECHNIQUE: CT brain performed in the axial plane. Coronal reconstruction images are performed. FINDINGS: There is age related atrophic change as seen on the prior study. There is no midline shift or mass effect. Blackburn-white differentiation is well maintained. There is no acute intracranial hemorrhage or extra-axial fluid collection. There are vascular calcifications of the carotid siphons bilaterally. There is mild mucosal thickening diffusely throughout the ethmoid sinuses. There is opacification of the right mastoid air cells, compatible with mastoiditis. IMPRESSION: No acute intracranial hemorrhage, midline shift or mass effect. Right mastoiditis. <Electronically signed by Rony Blackburn > 09/29/21 [id number]
[2021-09-29] MEDS ORDERED: NS 500 ML IV ONE (13:35)
[2021-09-29] MEDS ORDERED: ZOCO80TA PO (13:52)
[2021-09-29] MEDS ORDERED: ASPI81TA26 PO (13:52)
[2021-09-29] MEDS ORDERED: cefTRIAXone SOD 1 GM in D5W MINI-BAG PLUS 50 ML IV ONE (13:55)
[2021-09-29] MEDS ORDERED: HOME MED LIST COMPLETE! XX SCH (13:55)
--- NOTE | 2021-09-29 16:18 | HPEPDOC ---
General Date of Admission Sep 29, 2021 at 15:11 Date of Service: Sep 29, 2021 Chief Complaint The patient is a 85-year-old male admitted with a reason for visit of Acute Renal Failure, Covid 19, Uti. History of Present Illness Mr. Granados is an 85-year-old male with CKD stage IV and gout who presents with altered mental status and poor appetite. I tried to contact the , but I reached voicemail. Per ED provider, had brought patient into the ED. Patient had refused to eat or drink for the past week and had a fall. is also concerned about his left second toe and first right toe erythema. The left second toe has swelling and fluid. When patient was brought into the ED, he was initially hypotensive at triage. Without fluids, patient's blood pressure increased. When I saw patient, he denied any complaints and was confused why he was in the ED. He denied any fever or chills, chest pain, dyspnea, abdominal pain, diarrhea, dysuria, or any pain anywhere in the body. He denied any foot pain. He knew he was in the hospital, but he did not know what year or month we are in. Lab work was significant for leukocytosis of 15.9, creatinine of 4.52 (baseline around 1.7), and an albumin of 1.9. UA suspicious for UTI. Blood cultures and urine cultures obtained. Patient also tested positive for COVID-19. Patient will be admitted for metabolic encephalopathy secondary to UTI and KALLI. Home Medications Scheduled Aspirin (Aspirin EC) 81 Mg Tablet.dr, 81 MG PO DAILY, (Reported) Atenolol (Atenolol) 100 Mg Tab, 100 MG PO DAILY, (Reported) Furosemide (Furosemide) 20 Mg Tab, 40 MG PO DAILY, (Reported) Lisinopril (Lisinopril) 20 Mg Tab, 20 MG PO DAILY, (Reported) Omeprazole (Omeprazole) 40 Mg Cap, 40 MG PO DAILY, (Reported) Simvastatin (Zocor) 80 Mg Tablet, 80 MG PO DAILY, (Reported) Spironolactone (Spironolactone) 25 Mg Tab, 25 MG PO DAILY, (Reported) Tamsulosin HCl (Flomax) 0.4 Mg Cap, 0.4 MG PO DAILY, (Reported) Allergies Coded Allergies: Protein Milk (Verified Allergy, Intermediate, circumoral rash/swellnig, 11/20/17) Past Medical History Medical History 1. Hypertension 2. Lung cancer status post right upper lobe lobectomy 3. GERD 4. BPH 5. Peripheral vascular disease 6. Gout 7. Recurrent sinusitis 8. CKD stage IV 9. Primary hyperparathyroidism Surgical History 1. Right upper lobe lobectomy 2. Cataracts Family History Noncontributory Social History * Smoker: former Smoker Alcohol: Denies Drugs: denies A-FIB/CHADSVASC A-FIB History Current/History of A-Fib/PAF?: No Review of Systems Constitutional: Denies: Chills, Fever Eyes: Denies: Vision change ENT: Denies: Head Aches, Sore Throat Skin: Denies: Rash Pulmonary: Denies: Dyspnea, Cough Cardiovascular: Denies: Chest Pain Gastrointestinal: Denies: Abdominal Pain Genitourinary: Denies: Dysuria Hematologic: Denies: Bruising Musculoskeletal: Denies: Foot Pain Neurological: Denies: Numbness Psych: Denies: Anxiety, Depression Physical Examination General Exam: Positive: Alert, Cooperative Eye Exam: Positive: EOMI; Negative: Sclera icteric ENT Exam: Positive: Atraumatic Neck Exam: Positive: Supple Chest Exam: Positive: Clear to auscultation, Diminished Heart Exam: Positive: Rate Normal, Regular Rhythm Abdomen Exam: Positive: Normal bowel sounds, Soft; Negative: Tenderness Extremity Exam: Negative: Edema Skin Exam: Positive: Rash (Left second toe and right first toe erythema and s welling) Neuro Exam: Positive: Normal Speech Psych Exam: Positive: Mental status NL, Mood NL; Negative: Memory Intact, Oriented x 3 Vital Signs Vital Signs Date Time Temp Pulse Resp B/P (MAP) Pulse Ox O2 Delivery O2 Flow Rate FiO2 09/29/21 15:02 63 98 09/29/21 15:00 115/57 (76) 09/29/21 14:17 Room Air 09/29/21 12:37 95.9 09/29/21 12:07 30 Laboratory Data Labs 24H Laboratory Tests 2 09/29/21 12:09: Immature Granulocyte % (Auto) 1.6, Neutrophils (%) (Auto) 84.4H, Lymphocytes (%) (Auto) 6.1L, Monocytes (%) (Auto) 7.5, Eosinophils (%) (Auto) 0.1, Basophils (%) (Auto) 0.3, Neutrophils # (Auto) 13.4H, Lymphocytes # (Auto) 1.0L, Monocytes # (Auto) 1.2H, Eosinophils # (Auto) 0.0, Basophils # (Auto) 0.1, Nucleated Red Blood Cells % (auto) 0.0, Anion Gap 11, Glomerular Filtration Rate 13.3L, Calcium Level 10.3H, Total Bilirubin 0.5, Direct Bilirubin 0.2, Aspartate Amino Transf (AST/SGOT) 37, Alanine Aminotransferase (ALT/SGPT) 13, Alkaline Phosphatase 91, Total Creatine Kinase 171, Creatine Kinase MB 2.1, Creatine Kinase MB Relative Index 1.23, Troponin I < 0.02, Total Protein 6.8, Albumin 1.9L, Albumin/Globulin Ratio 0.4, Thyroid Stimulating Hormone (TSH) 1.650, Free Thyroxine 1.70H 09/29/21 13:14: Urine Color KIMBERLI, Urine Appearance CLOUDYH, Urine pH 5.0, Urine Specific Gravit y 1.012, Urine Protein 2+H, Urine Glucose (UA) NEGATIVE, Urine Ketones NEGATIVE, Urine Blood 2+H, Urine Nitrite NEGATIVE, Urine Bilirubin NEGATIVE, Urine Urobilinogen 2.0H, Urine Leukocyte Esterase TRACEH, Urine WBC (Auto) 22H, Urine RBC (Auto) 12H, Urine Hyaline Casts (Auto) 14, Urine Bacteria (Auto) 1+H, Urine Squamous Epithelial Cells 4, Urine Amorphous Sediment SMALLH, Urine Mucus (Auto) SMALL, Urine Sperm (Auto) CBC/BMP Laboratory Tests 09/29/21 12:09 Microbiology Microbiology 09/29/21 Blood Culture, Received Pending 09/29/21 Blood Culture, Received Pending 09/29/21 Urine Culture, Received Pending 09/29/21 Respiratory Virus Panel (PCR) ([facility]) - Final, Complete SARS-CoV-2 (COVID 19) Assessment/Plan Mr. Granados is an 85-year-old male with CKD stage IV and gout who presents with altered mental status and poor appetite. Patient's poor appetite may be secondary to infection versus gouty flare. The lack of oral intake coupled with furosemide, lisinopril, and spironolactone most likely caused his KALLI. Patient will be given IV fluids and nephrotoxic agents will be held. I touch base with podiatry who will take a look at the feet. Podiatry looked at feet. 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 Patient will be treated with steroids as he is in acute renal failure. Plan / VTE VTE Prophylaxis Ordered?: Yes Plan Plan 1. Acute on chronic renal failure Patient has history of CKD stage IV Baseline creatinine 1.7 Creatinine on admission 4.52 Patient be given IV fluids furosemide, lisinopril, and spironolactone will be held Encourage oral intake 2. UTI UA suspicious for UTI Ceftriaxone day 1 3. Left second toe joint effusion Possibly secondary to gout Right first toe also erythematous Podiatry will examine the feet and determine if the joint needs to be aspirated We will check a uric acid level. If patient does have a gouty flare, will use steroids to treat as patient is in acute renal failure Podiatry looked at feet. 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 Patient will be started on steroids 4. Hypertension Patient's blood pressure is on the lower side Hold lisinopril, spironolactone, and furosemide Continue atenolol 5. BPH Continue tamsulosin 6. COVID-19 infection Patient does not have any signs of Covid infection Supportive care and quarantine 7. DVT prophylaxis Heparin Disposition: Pending urine culture results and clinical improvement KRAISSA ORTIZ DO Sep 29, 2021 16:18
[2021-09-29 16:25] LABS: INR 1.21; PROTHROMBIN TIME 15.7 SECONDS (12.7-14.5)
[2021-09-29 16:26] LABS: PARTIAL THROMBOPLASTIN TIME 43.3 SECONDS (25.9-37.0)
[2021-09-29 16:28] LABS: D-DIMER QUANT 3800.86 ng/ml (<500)
--- NOTE | 2021-09-29 16:38 | REP ---
INDICATION: KALLI. COMPARISON: 01/01/2017. TECHNIQUE: Real-time sonographic evaluation of the kidneys is performed. FINDINGS: Renal cortical echogenicity pattern is normal bilaterally and contours are smooth. There is no evidence of hydronephrosis, cyst, mass, or calculus in either kidney. The right kidney measures 9.1 x 4.4 x 5.3 cm. Left renal dimensions are 10.0 x 4.6 x 5.0 cm. The urinary bladder is unremarkable. The prostate is heterogeneous and enlarged, 5.8 x 4.8 x 4.4 cm, total volume 64.1 mL. IMPRESSION: Negative renal ultrasound. Enlarged prostate. <Electronically signed by Rony Blackburn > 09/29/21 [id number]
[2021-09-29 17:03] LABS: C REACTIVE PROTEIN QUANTITATIV 28.5 MG/DL (0.00-0.30); MAGNESIUM LEVEL 1.6 MG/DL (1.8-2.4); URIC ACID 11.5 MG/DL (3.5-7.2)
--- NOTE | 2021-09-29 17:31 | REP ---
INDICATION: 2nd left toe and first right toe swelling and erythema COMPARISON: None. TECHNIQUE: Four views bilateral feet. FINDINGS: There is no evidence of acute fracture or dislocation. On the right there is a tiny inferior calcaneal spur. There is severe joint space narrowing at the 1st metatarsophalangeal joint with mild hallux valgus deformity. Large eccentric erosions with sclerotic changes are seen of the head of the 1st metatarsal and of the 1st proximal phalanx.Tophi are seen along the 1st metatarsophalangeal joint. Findings are consistent with gout. On the left there is mild inferior calcaneal spurring. There is severe joint space narrowing at the 1st metatarsophalangeal joint with mild hallux valgus deformity. Large eccentric erosions with sclerotic changes are seen of the head of the 1st metatarsal and of the 1st proximal phalanx.Tophi are seen along the 1st metatarsophalangeal joint. Findings are consistent with gout. There is also soft tissue swelling of the 2nd toe. There are lytic lesions and erosions of the middle and distal phalanges of the 2nd toe. IMPRESSION: No fracture or dislocation. There are radiographic findings of gout involving the 1st metatarsophalangeal joints bilaterally as well as the left 2nd toe. <Electronically signed by Rony Blackburn > 09/29/21 [id number]
--- NOTE | 2021-09-29 20:53 | CR ---
CONSULTATION DATE: 09/29/2021 REASON FOR CONSULTATION: Toe redness. Domenico Granados is a patient seen in the emergency room, who was admitted due to altered mental status. I was asked to see him in consultation due to redness to his toes. Patient unable to give history on the toes. He notes some pain in his feet. MEDICAL HISTORY: Significant for: 1. History of hypertension. 2. History of lung cancer. 3. Gastroesophageal reflux disease (GERD). 4. BPH. 5. Peripheral vascular disease. 6. History of gout. 7. Recurrent sinusitis. 8. Chronic kidney disease, stage IV. 9 Primary hyperparathyroidism. SURGICAL HISTORY: 1. Right upper lobe lobectomy. 2. Cataract surgery. FAMILY HISTORY: Noncontributory. SOCIAL HISTORY: Former smoker. Denies alcohol. REVIEW OF SYSTEMS: Unobtainable due to altered mental status. VITAL SIGNS: He has been afebrile since the emergency room (ER). LABORATORY DATA: White blood cell count is 15.9. Creatinine is 4.52. GFR is 13.3. His uric acid is 11.5. CRP 28.5. He is positive for COVID-19. Foot x-ray was performed, which showed findings of the erosive changes consistent with gout to the bilateral hallux and 2nd toe on the left. LOWER EXTREMITY EXAMINATION: There is erythema with visible tophi through the skin on the right hallux and left 2nd toe as well as the right medial 1st metatarsophalangeal joint. There are no open wounds. 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 PLAN: I believe the altered mental status is most likely due to the suspected urinary tract infection (UTI). I do not believe that the foot has infection presently. The x-rays and clinical findings are strongly correlated with gout. I have no suspicion for septic joint. Patient can be treated for the UTI and with prednisone for the gout.
[2021-09-29 21:37] VITALS: BP 133/55; O2SAT 98
[2021-09-29] MEDS: NS 1,000 ML IV SCH (22:35)
[2021-09-29] MEDS: HEPARIN SOD (PORCINE) 5000UNITS/ML 1ML VIAL/SYRINGE SQ SCH (22:38)
[2021-09-30] VITALS (9 sets, daily range): BP systolic 101–120; BP diastolic 52–64; O2SAT 97–100
[2021-09-30] MEDS: NS 1,000 ML IV SCH ×3 (01:40→20:31)
[2021-09-30 07:47] LABS: BASO % 0.2 % (0.0-1.0); EOS % 0.3 % (0.0-3.0); HEMATOCRIT 30.7 % (42.0-52.0); HEMOGLOBIN 9.7 g/dl (13.5-17.5); LYMPH # 0.9 10^3/uL (1.5-5.0); LYMPH % 7.3 % (24.0-44.0); MEAN CORPUSCULAR HEMOGLOBIN 29.8 pg (27.0-33.0); MEAN CORPUSCULAR HGB CONC 31.6 g/dl (32.0-36.5); MEAN CORPUSCULAR VOLUME 94.5 fl (80.0-96.0); MONO # 0.9 10^3/uL (0.0-0.8); NEUTROPHILS # 9.6 10^3/uL (1.5-8.5); NEUTROPHILS % 82.8 % (36.0-66.0); RED BLOOD COUNT 3.25 10^6/uL (4.30-6.10); WHITE BLOOD COUNT 11.6 10^3/uL (4.0-10.0)
[2021-09-30 08:00] LABS: PLATELET COUNT, AUTOMATED 337 10^3/uL (150-450)
[2021-09-30] MEDS: predniSONE 20 MG TAB PO SCH ×2 (08:23→08:25)
[2021-09-30] MEDS: atenoloL 50 MG TAB PO SCH (08:23)
[2021-09-30] MEDS: HEPARIN SOD (PORCINE) 5000UNITS/ML 1ML VIAL/SYRINGE SQ SCH ×2 (08:23→20:31)
[2021-09-30] MEDS: ASPIRIN 81MG ENTERIC TABLET PO SCH (08:23)
[2021-09-30 08:31] LABS: CALCIUM LEVEL 10.2 MG/DL (8.8-10.2); CREATININE FOR GFR 4.04 MG/DL (0.70-1.30); GLOMERULAR FILTRATION RATE 15.1 (>35); MAGNESIUM LEVEL 1.5 MG/DL (1.8-2.4); POTASSIUM SERUM 2.8 MEQ/L (3.5-5.1)
[2021-09-30] MEDS ORDERED: POTASSIUM CHLORIDE 10MEQ SR TABLET PO ONE (09:30)
[2021-09-30] MEDS: MAG SULF 1GM/100ML (MAG RUN) 1 GM in IV 1 EA IV SCH ×2 (11:24→13:22)
[2021-09-30] MEDS: cefTRIAXone SOD 1 GM in D5W MINI-BAG PLUS 50 ML IV SCH (14:41)
--- NOTE | 2021-09-30 17:12 | IPNPDOC ---
Subjective Date Seen The patient was seen on 09/30/21. Subjective Chief Complaint/HPI Mr. Granados is an 85-year-old male with CKD stage IV and gout who presents with altered mental status and poor appetite. Patient was seen this morning. He denied any chest pain or dyspnea. I reminded him that he was here because his kidneys were not doing well and that he will have to eat for his kidneys to improve. I encourage oral intake of fluids. Continue with IVF. Objective Physical Examination General Exam: Positive: Alert, Cooperative Eye Exam: Positive: EOMI; Negative: Sclera icteric ENT Exam: Positive: Atraumatic Neck Exam: Positive: Supple Chest Exam: Positive: Clear to auscultation, Diminished Heart Exam: Positive: Rate Normal, Regular Rhythm Abdomen Exam: Positive: Normal bowel sounds, Soft; Negative: Tenderness Extremity Exam: Negative: Edema Skin Exam: Positive: Rash (Left second toe and right first toe erythema and swelling) Neuro Exam: Positive: Normal Speech Psych Exam: Positive: Mood NL; Negative: Memory Intact, Oriented x 3 Assessment /Plan Assessment Mr. Granados is an 85-year-old male with CKD stage IV and gout who presents with altered mental status and poor appetite. Patient's poor appetite may be s econdary to infection versus gouty flare. The lack of oral intake coupled with furosemide, lisinopril, and spironolactone most likely caused his KALLI. Patient will be given IV fluids and nephrotoxic agents will be held. I touch base with podiatry who will take a look at the feet. Podiatry looked at feet. 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 Patient will be treated with steroids as he is in acute renal failure Plan/VTE VTE Prophylaxis Ordered?: Yes Plan 1. Acute on chronic renal failure Patient has history of CKD stage IV Baseline creatinine 1.7 Creatinine on admission 4.52 Patient be given IV fluids furosemide, lisinopril, and spironolactone will be held Encourage oral intake 2. UTI UA suspicious for UTI Ceftriaxone day 2 3. Left second toe joint effusion Possibly secondary to gout Right first toe also erythematous Podiatry will examine the feet and determine if the joint needs to be aspirated We will check a uric acid level. If patient does have a gouty flare, will use steroids to treat as patient is in acute renal failure Podiatry looked at feet. 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 Patient will be started on steroids 4. Hypertension Patient's blood pressure is on the lower side Hold lisinopril, spironolactone, and furosemide Continue atenolol 5. BPH Continue tamsulosin 6. COVID-19 infection Patient does not have any signs of Covid infection Supportive care and quarantine 7. DVT prophylaxis Heparin Disposition: Pending urine culture results and clinical improvement VS, I&O, 24H, Fishbone Vital Signs/I&O Vital Signs Date Time Temp Pulse Resp B/P (MAP) Pulse Ox O2 Delivery O2 Flow Rate FiO2 09/30/21 16:00 97 Room Air 09/30/21 13:58 96.2 69 18 101/52 (68) I&O- Last 24 Hours up to 6 AM 09/30/21 06:00 Intake Total 1420 ml Output Total 200 ml Balance 1220 ml Laboratory Data 24H LABS Laboratory Tests 2 09/30/21 06:55: Immature Granulocyte % (Auto) 1.4, Neutrophils (%) (Auto) 82.8H, Lymphocytes (%) (Auto) 7.3L, Monocytes (%) (Auto) 8.0, Eosinophils (%) (Auto) 0.3, Basophils (%) (Auto) 0.2, Neutrophils # (Auto) 9.6H, Lymphocytes # (Auto) 0.9L, Monocytes # (Auto) 0.9H, Eosinophils # (Auto) 0.0, Basophils # (Auto) 0.0, Nucleated Red Blood Cells % (auto) 0.0, Anion Gap 13, Glomerular Filtration Rate 15.1L, Calcium Level 10.2, Magnesium Level 1.5L CBC/BMP Laboratory Tests 09/30/21 06:55 Microbiology Microbiology 09/29/21 Blood Culture - Preliminary, Resulted No growth after 24 hours . All specim... 09/29/21 Blood Culture - Preliminary, Resulted No growth after 24 hours . All specim... 09/29/21 Urine Culture, Received Pending 09/29/21 Respiratory Virus Panel (PCR) ([facility]) - Final, Complete SARS-CoV-2 (COVID 19) KARISSA ORTIZ DO Sep 30, 2021 17:12
--- NOTE | 2021-09-30 20:39 | ECGEPIP ---
[facility] - ED Test Date: 2021-09-29 Pat Name: YUN HUANG Department: Room: - Gender: Male Field Servicer: MARISA : 1935 Requested By: Ruby Gallegos Order Number: [id number] Reading MD: Ruby Gallegos Measurements Intervals Boles Rate: 68 P: 79 UT: 178 QRS: 82 QRSD: 94 T: 77 QT: 430 QTc: 457 Interpretive Statements Normal sinus rhythm st elevation requires clinical correlation comparison 10/22/15 Electronically Signed on 09-30-2021 20:39:39 EDT by Ruby Gallegos
[2021-10-01] VITALS (9 sets, daily range): BP systolic 123–146; BP diastolic 63–68; O2SAT 95–100
[2021-10-01 06:46] LABS: BASO % 0.2 % (0.0-1.0); HEMATOCRIT 29.3 % (42.0-52.0); HEMOGLOBIN 9.2 g/dl (13.5-17.5); LYMPH # 0.8 10^3/uL (1.5-5.0); LYMPH % 6.3 % (24.0-44.0); MEAN CORPUSCULAR HEMOGLOBIN 29.5 pg (27.0-33.0); MEAN CORPUSCULAR HGB CONC 31.4 g/dl (32.0-36.5); MEAN CORPUSCULAR VOLUME 93.9 fl (80.0-96.0); MONO # 0.9 10^3/uL (0.0-0.8); MONO % 7.3 % (2.0-8.0); NEUTROPHILS # 10.9 10^3/uL (1.5-8.5); NEUTROPHILS % 84.7 % (36.0-66.0); PLATELET COUNT, AUTOMATED 335 10^3/uL (150-450); RED BLOOD COUNT 3.12 10^6/uL (4.30-6.10); WHITE BLOOD COUNT 12.8 10^3/uL (4.0-10.0)
[2021-10-01 07:03] LABS: INR 1.15; PROTHROMBIN TIME 15.2 SECONDS (12.7-14.5)
[2021-10-01 07:04] LABS: PARTIAL THROMBOPLASTIN TIME 51.6 SECONDS (25.9-37.0)
[2021-10-01 07:27] LABS: ALBUMIN 1.7 GM/DL (3.2-5.2); ALT/SGPT 16 U/L (12-78); BILIRUBIN,DIRECT 0.1 MG/DL (0.0-0.2); BILIRUBIN,TOTAL 0.2 MG/DL (0.2-1.0); BLOOD UREA NITROGEN 82 MG/DL (7-18); CALCIUM LEVEL 10.4 MG/DL (8.8-10.2); CARBON DIOXIDE LEVEL 24 MEQ/L (21-32); CHLORIDE LEVEL 104 MEQ/L (98-107); CPK CREATINE PHOSPHOKINASE 180 U/L (39-308); CREATININE FOR GFR 3.34 MG/DL (0.70-1.30); FERRITIN 1135 NG/ML (26-388); GLOMERULAR FILTRATION RATE 18.8 (>35); GLUCOSE, FASTING 95 MG/DL (70-100); LDH LACTATE DEHYDROGENASE 199 U/L (87-241); MAGNESIUM LEVEL 2.2 MG/DL (1.8-2.4); NT-PRO BNP 3065 PG/ML (<450); POTASSIUM SERUM 4.2 MEQ/L (3.5-5.1); SODIUM LEVEL 140 MEQ/L (136-145); TROPONIN I < 0.02 NG/ML (< 0.10)
[2021-10-01] MEDS: ASPIRIN 81MG ENTERIC TABLET PO SCH (10:05)
[2021-10-01] MEDS: HEPARIN SOD (PORCINE) 5000UNITS/ML 1ML VIAL/SYRINGE SQ SCH ×2 (10:05→20:13)
[2021-10-01] MEDS: predniSONE 20 MG TAB PO SCH (10:06)
[2021-10-01] MEDS: NS 1,000 ML IV SCH ×2 (10:08→14:32)
[2021-10-01] MEDS: atenoloL 50 MG TAB PO SCH (10:08)
--- NOTE | 2021-10-01 14:26 | IPNPDOC ---
Subjective Date Seen The patient was seen on 10/01/21. Subjective Chief Complaint/HPI Mr. Granados is an 85-year-old male with CKD stage IV and gout who presents with altered mental status and poor appetite. This morning, he denies any chest pain or dyspnea. Encourage oral intake of food. Renal function slowly improving. Pending urine culture results Objective Physical Examination General Exam: Positive: Alert, Cooperative Eye Exam: Positive: EOMI; Negative: Sclera icteric ENT Exam: Positive: Atraumatic Neck Exam: Positive: Supple Chest Exam: Positive: Clear to auscultation, Diminished Heart Exam: Positive: Rate Normal, Regular Rhythm Abdomen Exam: Positive: Normal bowel sounds, Soft; Negative: Tenderness Extremity Exam: Negative: Edema Skin Exam: Positive: Rash (Left second toe and right first toe erythema and swelling) Neuro Exam: Positive: Normal Speech Psych Exam: Positive: Mood NL; Negative: Memory Intact, Oriented x 3 Assessment /Plan Assessment Mr. Granados is an 85-year-old male with CKD stage IV and gout who presents with altered mental status and poor appetite. Patient's poor appetite may be seconda ry to infection versus gouty flare. The lack of oral intake coupled with furosemide, lisinopril, and spironolactone most likely caused his KALLI. Patient will be given IV fluids and nephrotoxic agents will be held. I touch base with podiatry who will take a look at the feet. Podiatry looked at feet. 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 Patient will be treated with steroids as he is in acute renal failure Plan/VTE VTE Prophylaxis Ordered?: Yes Plan 1. Acute on chronic renal failure Patient has history of CKD stage IV Baseline creatinine 1.7 Creatinine on admission 4.52 Patient be given IV fluids furosemide, lisinopril, and spironolactone will be held Encourage oral intake 2. UTI UA suspicious for UTI Ceftriaxone day 3 3. Left second toe joint effusion Possibly secondary to gout Right first toe also erythematous Podiatry will examine the feet and determine if the joint needs to be aspirated We will check a uric acid level. If patient does have a gouty flare, will use steroids to treat as patient is in acute renal failure Podiatry looked at feet. 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 Patient will be started on steroids 4. Hypertension Patient's blood pressure is on the lower side Hold lisinopril, spironolactone, and furosemide Continue atenolol 5. BPH Continue tamsulosin 6. COVID-19 infection Patient does not have any signs of Covid infection Supportive care and quarantine 7. DVT prophylaxis Heparin Disposition: Pending urine culture results and clinical improvement. Renal function not at baseline and still improving. VS, I&O, [facility]O Vital Signs Date Time Temp Pulse Resp B/P (MAP) Pulse Ox O2 Delivery O2 Flow Rate FiO2 10/01/21 10:08 64 121/58 10/01/21 05:40 96.9 21 100 Room Air I&O- Last 24 Hours up to 6 AM 10/01/21 06:00 Intake Total 1920 ml Output Total 1050 ml Balance 870 ml Laboratory Data 24H LABS Laboratory Tests 2 10/01/21 05:53: Immature Granulocyte % (Auto) 1.5, Neutrophils (%) (Auto) 84.7H, Lymphocytes (%) (Auto) 6.3L, Monocytes (%) (Auto) 7.3, Eosinophils (%) (Auto) 0.0, Basophils (%) (Auto) 0.2, Neutrophils # (Auto) 10.9H, Lymphocytes # (Auto) 0.8L, Monocytes # (Auto) 0.9H, Eosinophils # (Auto) 0.0, Basophils # (Auto) 0.0, Nucleated Red Blood Cells % (auto) 0.0, Prothrombin Time 15.2H, Prothromb Time International Ratio 1.15, Activated Partial Thromboplast Time 51.6H, Fibrinogen 869H, Anion Gap 12, Glomerular Filtration Rate 18.8L, Calcium Level 10.4H, Magnesium Level 2.2, Ferritin 1135H, Total Bilirubin 0.2#, Direct Bilirubin 0.1, Aspartate Amino Transf (AST/SGOT) 38H, Alanine Aminotransferase (ALT/SGPT) 16, Alkaline Phosphatase 90, Lactate Dehydrogenase 199, Total Creatine Kinase 180, Troponin I < 0.02, CR-Ija-D-Type Natriuretic Peptide 3065H, Total Protein 6.0L, Albumin 1.7L, Albumin/Globulin Ratio 0.4, Procalcitonin 0.34 CBC/BMP Laboratory Tests 10/01/21 05:53 Microbiology Microbiology 09/29/21 Blood Culture - Preliminary, Resulted No growth after 24 hours . All specim... 09/29/21 Blood Culture - Preliminary, Resulted No growth after 24 hours . All specim... 09/29/21 Urine Culture, Received Pending 09/29/21 Respiratory Virus Panel (PCR) ([facility]) - Final, Complete SARS-CoV-2 (COVID 19) KARISSA ORTIZ DO Oct 01, 2021 14:26
[2021-10-01] MEDS: cefTRIAXone SOD 1 GM in D5W MINI-BAG PLUS 50 ML IV SCH (14:32)
[2021-10-02] VITALS (8 sets, daily range): BP systolic 151–165; BP diastolic 70–78; O2SAT 98–100
[2021-10-02] MEDS: NS 1,000 ML IV SCH ×2 (03:54→10:31)
[2021-10-02 06:39] LABS: BASO % 0.1 % (0.0-1.0); HEMATOCRIT 26.8 % (42.0-52.0); HEMOGLOBIN 8.3 g/dl (13.5-17.5); LYMPH # 0.8 10^3/uL (1.5-5.0); LYMPH % 9.8 % (24.0-44.0); MEAN CORPUSCULAR HEMOGLOBIN 29.3 pg (27.0-33.0); MEAN CORPUSCULAR VOLUME 94.7 fl (80.0-96.0); MONO # 0.8 10^3/uL (0.0-0.8); MONO % 10.1 % (2.0-8.0); NEUTROPHILS # 6.1 10^3/uL (1.5-8.5); NEUTROPHILS % 78.2 % (36.0-66.0); PLATELET COUNT, AUTOMATED 280 10^3/uL (150-450); RED BLOOD COUNT 2.83 10^6/uL (4.30-6.10); WHITE BLOOD COUNT 7.8 10^3/uL (4.0-10.0)
[2021-10-02 06:58] LABS: CALCIUM LEVEL 9.6 MG/DL (8.8-10.2); CREATININE FOR GFR 2.22 MG/DL (0.70-1.30); GLOMERULAR FILTRATION RATE 30.2 (>35); MAGNESIUM LEVEL 1.7 MG/DL (1.8-2.4); POTASSIUM SERUM 4.2 MEQ/L (3.5-5.1)
[2021-10-02] MEDS: atenoloL 50 MG TAB PO SCH (09:00)
[2021-10-02] MEDS: predniSONE 20 MG TAB PO SCH (09:41)
[2021-10-02] MEDS: ASPIRIN 81MG ENTERIC TABLET PO SCH (09:41)
[2021-10-02] MEDS: HEPARIN SOD (PORCINE) 5000UNITS/ML 1ML VIAL/SYRINGE SQ SCH ×2 (09:42→21:23)
--- NOTE | 2021-10-02 12:27 | IPNPDOC ---
Subjective Date Seen The patient was seen on 10/02/21. Subjective Chief Complaint/HPI Mr. Granados is an 85-year-old male with CKD stage IV and gout who presents with altered mental status and poor appetite. Last night, he attempted to cut off his IV with a butter knife. Sitter requested. Otherwise, this morning, he denied any chest pain or dyspnea. He had questions why he was here in the hospital. He has KALLI and a UTI. Objective Physical Examination General Exam: Positive: Alert, Cooperative Eye Exam: Positive: EOMI; Negative: Sclera icteric ENT Exam: Positive: Atraumatic Neck Exam: Positive: Supple Chest Exam: Positive: Clear to auscultation, Diminished Heart Exam: Positive: Rate Normal, Regular Rhythm Abdomen Exam: Positive: Normal bowel sounds, Soft; Negative: Tenderness Extremity Exam: Negative: Edema Skin Exam: Positive: Rash (Left second toe and right first toe erythema and swelling) Neuro Exam: Positive: Normal Speech Psych Exam: Positive: Mood NL; Negative: Memory Intact, Oriented x 3 Assessment /Plan Assessment Mr. Granados is an 85-year-old male with CKD stage IV and gout who presents with altered mental status and poor appetite. Patient's poor appetite may be secondary to infection versus gouty flare. The lack of oral intake coupled with furosemide, lisinopril, and spironolactone most likely caused his KALLI. Patient will be given IV fluids and nephrotoxic agents will be held. I touch base with podiatry who will take a look at the feet. Podiatry looked at feet. 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 Patient will be treated with steroids as he is in acute renal failure Plan/VTE VTE Prophylaxis Ordered?: Yes Plan 1. Acute on chronic renal failure Patient has history of CKD stage IV Baseline creatinine 1.7 Creatinine on admission 4.52 Patient be given IV fluids furosemide, lisinopril, and spironolactone will be held Encourage oral intake 2. UTI UA suspicious for UTI -Urine culture grew Staph haemolyticus and Strep sanguinis. These are in small amounts (<100,000) Ceftriaxone day 4 -Leukocytosis resolved 3. Left second toe joint effusion Possibly secondary to gout Right first toe also erythematous Podiatry will examine the feet and determine if the joint needs to be aspirated We will check a uric acid level. If patient does have a gouty flare, will use steroids to treat as patient is in acute renal failure Podiatry looked at feet. 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 Patient will be started on steroids 4. Hypertension Patient's blood pressure is on the lower side Hold lisinopril, spironolactone, and furosemide Continue atenolol 5. BPH Continue tamsulosin 6. COVID-19 infection Patient does not have any signs of Covid infection Supportive care and quarantine 7. DVT prophylaxis Heparin Disposition: Pending clinical improvement. Renal function not at baseline but still improving. If reach baseline tomorrow, can consider discharge home tomorrow. VS, I&O, 24H, Fishbone Vital Signs/I&O Vital Signs Date Time Temp Pulse Resp B/P (MAP) Pulse Ox O2 Delivery O2 Flow Rate FiO2 10/02/21 09:00 61 162/77 10/02/21 05:29 96.0 20 98 Room Air I&O- Last 24 Hours up to 6 AM 10/02/21 05:59 Intake Total 1560 ml Output Total 1125 ml Balance 435 ml Laboratory Data 24H LABS Laboratory Tests 2 10/02/21 06:02: Immature Granulocyte % (Auto) 1.8, Neutrophils (%) (Auto) 78.2H, Lymphocytes (%) (Auto) 9.8L, Monocytes (%) (Auto) 10.1H, Eosinophils (%) (Auto) 0.0, Basophils (%) (Auto) 0.1, Neutrophils # (Auto) 6.1, Lymphocytes # (Auto) 0.8L, Monocytes # (Auto) 0.8, Eosinophils # (Auto) 0.0, Basophils # (Auto) 0.0, Nucleated Red Blood Cells % (auto) 0.0, Anion Gap 6L, Glomerular Filtration Rate 30.2L, Calcium Level 9.6, Magnesium Level 1.7L CBC/BMP Laboratory Tests 10/02/21 06:02 Microbiology Microbiology 09/29/21 Blood Culture - Preliminary, Resulted No Growth after 48 hours. All Specime... 09/29/21 Blood Culture - Preliminary, Resulted No Growth after 48 hours. All Specime... 09/29/21 Urine Culture - Final, Complete Staphylococcus Haemolyticus Streptococcus Sanguinis 09/29/21 Respiratory Virus Panel (PCR) ([facility]) - Final, Complete SARS-CoV-2 (COVID 19) KARISSA ORTIZ DO Oct 02, 2021 12:26
[2021-10-02] MEDS: cefTRIAXone SOD 1 GM in D5W MINI-BAG PLUS 50 ML IV SCH (14:33)
[2021-10-03] VITALS (7 sets, daily range): BP systolic 141–161; BP diastolic 64–70; O2SAT 97–100
[2021-10-03] MEDS: NS 1,000 ML IV SCH (00:31)
[2021-10-03 06:31] LABS: BASO % 0.1 % (0.0-1.0); EOS % 0.1 % (0.0-3.0); HEMATOCRIT 27.2 % (42.0-52.0); HEMOGLOBIN 8.4 g/dl (13.5-17.5); LYMPH # 0.9 10^3/uL (1.5-5.0); LYMPH % 12.4 % (24.0-44.0); MEAN CORPUSCULAR HEMOGLOBIN 29.3 pg (27.0-33.0); MEAN CORPUSCULAR HGB CONC 30.9 g/dl (32.0-36.5); MEAN CORPUSCULAR VOLUME 94.8 fl (80.0-96.0); MONO # 0.7 10^3/uL (0.0-0.8); MONO % 9.4 % (2.0-8.0); NEUTROPHILS # 5.4 10^3/uL (1.5-8.5); NEUTROPHILS % 76.3 % (36.0-66.0); PLATELET COUNT, AUTOMATED 276 10^3/uL (150-450); RED BLOOD COUNT 2.87 10^6/uL (4.30-6.10); WHITE BLOOD COUNT 7.1 10^3/uL (4.0-10.0)
[2021-10-03 06:45] LABS: INR 1.05; PROTHROMBIN TIME 14.1 SECONDS (12.7-14.5)
[2021-10-03 06:46] LABS: PARTIAL THROMBOPLASTIN TIME 48.5 SECONDS (25.9-37.0)
[2021-10-03 07:05] LABS: ALBUMIN 1.5 GM/DL (3.2-5.2); ALT/SGPT 16 U/L (12-78); BILIRUBIN,DIRECT 0.1 MG/DL (0.0-0.2); BILIRUBIN,TOTAL 0.2 MG/DL (0.2-1.0); BLOOD UREA NITROGEN 50 MG/DL (7-18); CALCIUM LEVEL 10.5 MG/DL (8.8-10.2); CARBON DIOXIDE LEVEL 23 MEQ/L (21-32); CHLORIDE LEVEL 109 MEQ/L (98-107); CPK CREATINE PHOSPHOKINASE 77 U/L (39-308); CREATININE FOR GFR 1.68 MG/DL (0.70-1.30); FERRITIN 656 NG/ML (26-388); GLOMERULAR FILTRATION RATE 41.6 (>35); GLUCOSE, FASTING 83 MG/DL (70-100); LDH LACTATE DEHYDROGENASE 138 U/L (87-241); MAGNESIUM LEVEL 1.6 MG/DL (1.8-2.4); NT-PRO BNP 9085 PG/ML (<450); POTASSIUM SERUM 3.7 MEQ/L (3.5-5.1); SODIUM LEVEL 140 MEQ/L (136-145); TOTAL PROTEIN 5.8 GM/DL (6.4-8.2); TROPONIN I < 0.02 NG/ML (< 0.10)
[2021-10-03] MEDS ORDERED: MIRALAX *UNIT DOSE* 17GM PACKET PO PRN (07:30)
[2021-10-03] MEDS: MAG SULF 1GM/100ML (MAG RUN) 1 GM in IV 1 EA IV SCH ×2 (08:52→09:35)
[2021-10-03] MEDS: ASPIRIN 81MG ENTERIC TABLET PO SCH (08:53)
[2021-10-03] MEDS: predniSONE 20 MG TAB PO SCH (08:53)
[2021-10-03] MEDS: atenoloL 50 MG TAB PO SCH (08:54)
[2021-10-03] MEDS ORDERED: DOCUSATE SODIUM 100MG CAPSULE PO SCH (09:00)
[2021-10-03] MEDS: HEPARIN SOD (PORCINE) 5000UNITS/ML 1ML VIAL/SYRINGE SQ SCH (09:35)
[2021-10-03] MEDS ORDERED: CEFD1CAP8 PO (13:34)
[2021-10-03] MEDS ORDERED: ATEN50TA2 PO (13:34)
[2021-10-03] MEDS ORDERED: FURO20TA2 PO (13:34)
[2021-10-03] MEDS ORDERED: PRED10TA2 PO (13:34)
[2021-10-03] MEDS: cefTRIAXone SOD 1 GM in D5W MINI-BAG PLUS 50 ML IV SCH (14:28)
--- NOTE | 2021-10-03 18:50 | DS.PDOC ---
Discharge Summary General Date of Admission Sep 29, 2021 at 15:11 Date of Discharge Oct 03, 2021 Specialist/[facility], Dr. Douglas Discharge Summary PROCEDURES PERFORMED DURING STAY: None ADMITTING DIAGNOSES: 1. Acute on chronic renal failure stage IV 2. UTI 3. Left second toe joint effusion 4. Hypertension 5. BPH 6. COVID-19 infection DISCHARGE DIAGNOSES: 1. Acute on chronic renal failure stage IV 2. UTI 3. Left second toe joint effusion 4. Hypertension 5. BPH 6. COVID-19 infection COMPLICATIONS/CHIEF COMPLAINT: Acute Renal Failure, Covid 19, Uti. HISTORY OF PRESENT ILLNESS: Mr. Granados is an 85-year-old male with CKD stage IV and gout who presents with altered mental status and poor appetite. I tried to contact the , but I reached voicemail. Per ED provider, had brought patient into the ED. Patient had refused to eat or drink for the past week and had a fall. is also concerned about his left second toe and first right t oe erythema. The left second toe has swelling and fluid. When patient was brought into the ED, he was initially hypotensive at triage. Without fluids, patient's blood pressure increased. When I saw patient, he denied any complaints and was confused why he was in the ED. He denied any fever or c hills, chest pain, dyspnea, abdominal pain, diarrhea, dysuria, or any pain anywhere in the body. He denied any foot pain. He knew he was in the hospital, but he did not know what year or month we are in. Lab work was significant for leukocytosis of 15.9, creatinine of 4.52 (baseline around 1.7), and an albumin of 1.9. UA suspicious for UTI. Blood cultures and urine cultures obtained. Patient also tested positive for COVID-19. Patient will be admitted for metabolic encephalopathy secondary to UTI and KALLI. HOSPITAL COURSE: During hospitalization, podiatry examined the foot bilaterally. Patient had gout. He was put on prednisone due to acute kidney injury. Otherwise, patient was given IVF and ceftriaxone for UTI. Patient's urine culture grew Staphylococcus haemolyticus (at 1,000 CFU/mL) and Streptococcus sanguinis (at 9,000 CFU/mL). The Staphylococcus is oxacillin sensitive and the Streptococcus is cephalosporin sensitive. Patient's leukocytosis down trended to 7.1. Patient remained afebrile during hospitalization. He had about 4 days of ceftriaxone. Otherwise, renal function slowly improved with IVF. On admission, his creatinine was 4.52. His baseline creatinine is about 1.7. His creatinine today was 1.68. Patient felt well. He did not need oxygen. He worked with physical therapy who recommended home with 24/7 care or placement. PFS worked with for patient to be at home. Today, he felt well and was discharged home. DISCHARGE MEDICATIONS: Please see below. ALLERGIES: Please see below. PHYSICAL EXAMINATION ON DISCHARGE: VITAL SIGNS: Please see below. GENERAL: Comfortable, in no apparent distress. HEENT: EOMI, sclera clear. NECK: Supple. RESPIRATORY: Lungs clear to auscultation bilaterally, no rales, wheeze or rhonchi. CARDIOVASCULAR: Regular rate and rhythm. ABDOMEN: Soft, nontender, no guarding or rebound tenderness. Normal bowel sounds. PSYCHOLOGICAL: Normal mood and affect LABORATORY DATA: Please see below. IMAGING: Radiologist interpretation CT head without contrast No acute intracranial hemorrhage, midline shift or mass effect. Right masto iditis. X-ray foot bilateral No fracture or dislocation. There are radiographic findings of gout involving the 1st metatarsophalangeal joints bilaterally as well as the left 2nd toe. Renal ultrasound Negative renal ultrasound. Enlarged prostate. Chest x-ray No acute pulmonary disease. PROGNOSIS: Good ACTIVITY: As tolerated. DIET: As tolerated DISCHARGE PLAN: Home with home services DISPOSITION: Home with home services. DISCHARGE INSTRUCTIONS: 1. Follow-up with PCP within a week 2. Please stop lisinopril and spironolactone. You have not needed these medications while here 3. I have decreased your furosemide from 40 mg daily to 20 mg daily 4. Please follow instructions for prednisone taper ITEMS TO FOLLOWUP ON ON OUTPATIENT: 1. Gout of left and right foot 2. Blood pressure 3. Renal function 4. Magnesium DISCHARGE CONDITION: Stable. Total time spent on discharge planning, discharge summary, and medication reconciliation: 45 minutes Vital Signs/I&Os Vital Signs Date Time Temp Pulse Resp B/P (MAP) Pulse Ox O2 Delivery O2 Flow Rate FiO2 10/03/21 14:29 96.5 61 18 141/68 (92) 99 Room Air I&O- Last 24 Hours up to 6 AM 10/03/21 06:00 Intake Total 300 ml Output Total 700 ml Balance -400 ml Laboratory Data Labs 24H Laboratory Tests 2 10/03/21 06:03: Immature Granulocyte % (Auto) 1.7, Neutrophils (%) (Auto) 76.3H, Lymphocytes (%) (Auto) 12.4L, Monocytes (%) (Auto) 9.4H, Eosinophils (%) (Auto) 0.1, Basophils (%) (Auto) 0.1, Neutrophils # (Auto) 5.4, Lymphocytes # (Auto) 0.9L, Monocytes # (Auto) 0.7, Eosinophils # (Auto) 0.0, Basophils # (Auto) 0.0, Nucleated Red Blood Cells % (auto) 0.0, Prothrombin Time 14.1H, Prothromb Time International Ratio 1.05, Activated Partial Thromboplast Time 48.5H, Fibrinogen 707H, Anion Gap 8, Glomerular Filtration Rate 41.6, Calcium Level 10.5H, Magnesium Level 1.6L, Ferritin 656H, Total Bilirubin 0.2, Direct Bilirubin 0.1, Aspartate Amino Transf (AST/SGOT) 36, Alanine Aminotransferase (ALT/SGPT) 16, Alkaline Phosphatase 63, Lactate Dehydrogenase 138, Total Creatine Kinase 77, Troponin I < 0.02, [id number] Natriuretic Peptide 9085H, Total Protein 5.8L, Albumin 1.5L, Albumin/Globulin Ratio 0.3, Procalcitonin <0.05 CBC/BMP Laboratory Tests 10/03/21 06:03 Microbiology Microbiology 09/29/21 Blood Culture - Preliminary, Resulted No Growth after 72 hours. All specime... 09/29/21 Blood Culture - Preliminary, Resulted No Growth after 72 hours. All specime... 09/29/21 Urine Culture - Final, Complete Staphylococcus Haemolyticus Streptococcus Sanguinis 09/29/21 Respiratory Virus Panel (PCR) ([facility]) - Final, Complete SARS-CoV-2 (COVID 19) Discharge Medications Scheduled Aspirin (Aspirin EC) 81 Mg Tablet.dr, 81 MG PO DAILY, (Reported) Atenolol (Atenolol) 50 Mg Tablet, 50 MG PO DAILY Cefdinir (Cefdinir) 300 Mg Capsule, 300 MG PO BID Furosemide (Furosemide) 20 Mg Tab, 20 MG PO DAILY Omeprazole (Omeprazole) 40 Mg Cap, 40 MG PO DAILY, (Reported) Prednisone (Prednisone) 10 Mg Tablet, 10 MG PO TAPER Take 4 tabs daily x 3 days, then 3 tabs daily x 3 days, then 2 tabs daily x 3 days, then 1 tab daily x 3 days and stop Simvastatin (Zocor) 80 Mg Tablet, 80 MG PO DAILY, (Reported) Tamsulosin HCl (Flomax) 0.4 Mg Cap, 0.4 MG PO DAILY, (Reported) Allergies Coded Allergies: Protein Milk (Verified Allergy, Intermediate, circumoral rash/swellnig, 11/20/17) KARISSA ORTIZ DO Oct 03, 2021 18:50
== END 2021-10-04 00:17 | disposition home health service (06) | DRG 682 ==
LOC: M ED 11:17 → M ED INP 15:11 → M 4MAIN 21:39
PROVIDERS: ADMIT Internal Medicine; ATTEND Internal Medicine
DX: N17.9 Acute kidney failure, unspecified (principal); G93.41 Metabolic encephalopathy; U07.1 COVID-19; N39.0 Urinary tract infection, site not specified; N18.4 Chronic kidney disease, stage 4 (severe); M1A.0711 Idiopathic chronic gout, right ankle and foot, with tophus (tophi); J32.9 Chronic sinusitis, unspecified; I12.9 Hypertensive chronic kidney disease with stage 1 through stage 4 chronic kidney disease, or unspecified chronic kidney disease; K21.9 Gastro-esophageal reflux disease without esophagitis; N40.0 Benign prostatic hyperplasia without lower urinary tract symptoms; I73.9 Peripheral vascular disease, unspecified; Z98.49 Cataract extraction status, unspecified eye; E21.0 Primary hyperparathyroidism; Z87.891 Personal history of nicotine dependence; M1A.0721 Idiopathic chronic gout, left ankle and foot, with tophus (tophi); M25.472 Effusion, left ankle; B95.8 Unspecified staphylococcus as the cause of diseases classified elsewhere; B95.5 Unspecified streptococcus as the cause of diseases classified elsewhere; Z85.118 Personal history of other malignant neoplasm of bronchus and lung; Z90.2 Acquired absence of lung [part of]; Z79.82 Long term (current) use of aspirin; Z79.899 Other long term (current) drug therapy; Z91.011 Allergy to milk products

== ENCOUNTER 2021-11-24 11:45 | Inpatient (IN) | payer MEDICARE ==
[~2021-11-24] VITALS: Ht 167.6 cm; Wt 56.3 kg
[2021-11-24] MEDS: OMEPRAZOLE 20MG CAP PO SCH (09:00)
[~2021-11-24 11:45] MED LIST changes: +ASPI81TA26 PO; +ATEN50TA2 PO; +CEFD300C41 PO; +PRED10TA2 PO; +ZOCO80TA PO
[2021-11-24] MEDS ORDERED: BOOSTRIX/ADACEL VACCINE (DIPHTH/PERTUSS/ACELL/TETANUS) 0.5ML SYR IM ONE (12:00)
[2021-11-24] MEDS ORDERED: ACETAMINOPHEN TAB 650MG DOSE (2X325MG) PO ONE (12:10)
[2021-11-24] MEDS ORDERED: AMPICILLIN SOD/SULBACTAM SOD 3 GM in D5W MINI-BAG PLUS 100 ML IV ONE (12:10)
[2021-11-24] MEDS ORDERED: metroNIDAZOLE 500 MG in IV 1 EA IV ONE (12:10)
[2021-11-24 12:45] LABS: BASO % 0.2 % (0.0-1.0); HEMATOCRIT 30.1 % (42.0-52.0); HEMOGLOBIN 9.1 g/dl (13.5-17.5); LYMPH # 0.8 10^3/uL (1.5-5.0); LYMPH % 5.9 % (24.0-44.0); MEAN CORPUSCULAR HGB CONC 30.2 g/dl (32.0-36.5); MEAN CORPUSCULAR VOLUME 89.3 fl (80.0-96.0); MONO # 1.2 10^3/uL (0.0-0.8); MONO % 9.2 % (2.0-8.0); NEUTROPHILS # 11.3 10^3/uL (1.5-8.5); PLATELET COUNT, AUTOMATED 307 10^3/uL (150-450); RED BLOOD COUNT 3.37 10^6/uL (4.30-6.10); WHITE BLOOD COUNT 13.4 10^3/uL (4.0-10.0)
[2021-11-24 12:56] LABS: INR 1.11; PROTHROMBIN TIME 14.8 SECONDS (12.7-14.5)
[2021-11-24 12:57] LABS: PARTIAL THROMBOPLASTIN TIME 38.3 SECONDS (25.9-37.0)
[2021-11-24 12:58] LABS: ACETAMINOPHEN LEVEL < 2.0 UG/ML (10.0-30.0); ALBUMIN 2.7 GM/DL (3.2-5.2); ALT/SGPT 7 U/L (12-78); AMYLASE 19 U/L (25-115); BILIRUBIN,DIRECT 0.6 MG/DL (0.0-0.2); BILIRUBIN,TOTAL 1.1 MG/DL (0.2-1.0); BLOOD UREA NITROGEN 21 MG/DL (7-18); CALCIUM LEVEL 10.5 MG/DL (8.8-10.2); CARBON DIOXIDE LEVEL 28 MEQ/L (21-32); CHLORIDE LEVEL 101 MEQ/L (98-107); CREATININE FOR GFR 1.28 MG/DL (0.70-1.30); ETHYL ALCOHOL (ETHANOL) < 0.003 % (0.000-0.010); GLOMERULAR FILTRATION RATE 56.9 (>35); GLUCOSE, FASTING 95 MG/DL (70-100); POTASSIUM SERUM 3.1 MEQ/L (3.5-5.1); SALICYLATE LEVEL 2.6 MG/DL (5.0-30.0); SODIUM LEVEL 143 MEQ/L (136-145); TOTAL PROTEIN 6.9 GM/DL (6.4-8.2)
[2021-11-24] MEDS ORDERED: ISOVUE-370 76% 100ML VIAL As Ordered ONE (12:58)
[2021-11-24 13:12] LABS: ERYTHROCYTE SEDIMENTATION RATE 126 mm/hr (0-20)
[2021-11-24 13:16] LABS: CK-MB VALUE MASS < 1.0 NG/ML (<3.6); CPK CREATINE PHOSPHOKINASE 20 U/L (39-308)
[2021-11-24] MEDS ORDERED: ATEN50TA2 PO (13:37)
[2021-11-24] MEDS ORDERED: FURO20TA2 PO (13:37)
[2021-11-24 13:41] LABS: RSV AMPLIFICATION NEGATIVE (NEGATIVE)
[2021-11-24] MEDS ORDERED: HOME MED LIST COMPLETE! XX SCH (13:45)
[2021-11-24] MEDS ORDERED: NS 1,000 ML IV ONE (13:50)
[2021-11-24 14:04] LABS: URIC ACID 11.1 MG/DL (3.5-7.2)
[2021-11-24] MEDS ORDERED: GLUCAGON INJ 1MG VIAL SC PRN (15:20)
[2021-11-24] MEDS ORDERED: GLUCOSE 4GM CHEW TABLET PO PRN (15:20)
[2021-11-24] MEDS ORDERED: DEXTROSE 50% 50 ML SYRINGE IV PRN (15:20)
[2021-11-24 16:41] LABS: INR 1.16; PROTHROMBIN TIME 15.2 SECONDS (12.7-14.5)
[2021-11-24] MEDS ORDERED: POTASSIUM CHLORIDE 10% LIQ 20 MEQ/15 ML UDC PO ONE (17:00)
[2021-11-24] MEDS ORDERED: VANCOMYCIN HCL 750 MG, VIAL MATE ADAPTER 1 EACH in NS 250 ML IV ONE (18:00)
[2021-11-24 19:24] LABS: AMPHETAMINES LEVEL URINE NEGATIVE (NEGATIVE); BARBITURATES URINE NEGATIVE (NEGATIVE); BENZODIAZEPINES URINE NEGATIVE (NEGATIVE); CANNABINOIDS URINE NEGATIVE (NEGATIVE); COCAINE METABOLITE URINE NEGATIVE (NEGATIVE); METHADONE URINE NEGATIVE (NEGATIVE); OPIATES URINE NEGATIVE (NEGATIVE); PHENCYCLIDINE URINE NEGATIVE (NEGATIVE)
[2021-11-24] MEDS: atenoloL 50 MG TAB PO SCH (20:07)
[2021-11-24] MEDS: HumaLOG INSULIN (NovoLOG) PER UNIT SC SCH ×2 (20:07→20:11)
[2021-11-24] MEDS: FUROSEMIDE 20 MG TAB PO SCH (20:10)
[2021-11-24] MEDS: TAMSULOSIN 0.4 MG CAP PO SCH (20:11)
[2021-11-24] MEDS ORDERED: CEFEPIME HCL 2 GM in D5W MINI-BAG PLUS 50 ML IV SCH (21:00)
[2021-11-25] MEDS: HumaLOG INSULIN (NovoLOG) PER UNIT SC SCH ×4 (07:30→21:00)
[2021-11-25] MEDS ORDERED: POTASSIUM CHLORIDE 10% LIQ 20 MEQ/15 ML UDC PO ONE ×2 (08:00→12:00)
[2021-11-25 08:11] LABS: HEMATOCRIT 27.9 % (42.0-52.0); HEMOGLOBIN 8.5 g/dl (13.5-17.5); MEAN CORPUSCULAR HGB CONC 30.5 g/dl (32.0-36.5); MEAN CORPUSCULAR VOLUME 88.6 fl (80.0-96.0); PLATELET COUNT, AUTOMATED 273 10^3/uL (150-450); RED BLOOD COUNT 3.15 10^6/uL (4.30-6.10); WHITE BLOOD COUNT 11.3 10^3/uL (4.0-10.0)
[2021-11-25 08:59] LABS: BLOOD UREA NITROGEN 21 MG/DL (7-18); CALCIUM LEVEL 9.8 MG/DL (8.8-10.2); CARBON DIOXIDE LEVEL 30 MEQ/L (21-32); CHLORIDE LEVEL 106 MEQ/L (98-107); CREATININE FOR GFR 1.15 MG/DL (0.70-1.30); GLOMERULAR FILTRATION RATE > 60.0 (>35); GLUCOSE, FASTING 111 MG/DL (70-100); MAGNESIUM LEVEL 1.7 MG/DL (1.8-2.4); POTASSIUM SERUM 2.9 MEQ/L (3.5-5.1); SODIUM LEVEL 143 MEQ/L (136-145)
[2021-11-25 09:08] LABS: ERYTHROCYTE SEDIMENTATION RATE 126 mm/hr (0-20)
[2021-11-25] MEDS: VANCOMYCIN HCL 1,000 MG, VIAL MATE ADAPTER 1 EACH in NS 250 ML IV SCH (09:24)
[2021-11-25] MEDS: ATORVASTATIN 20 MG TAB PO SCH (09:24)
[2021-11-25] MEDS: OMEPRAZOLE 20MG CAP PO SCH (09:24)
[2021-11-25] MEDS: atenoloL 50 MG TAB PO SCH (09:25)
[2021-11-25] MEDS: FUROSEMIDE 20 MG TAB PO SCH (09:25)
[2021-11-25] MEDS: TAMSULOSIN 0.4 MG CAP PO SCH (09:25)
[2021-11-25 09:50] VITALS: BP 168/80
[2021-11-25] MEDS: MAG SULF 1GM/100ML (MAG RUN) 1 GM in IV 1 EA IV SCH ×2 (10:44→13:00)
[2021-11-25] MEDS: CEFEPIME HCL 2 GM in D5W MINI-BAG PLUS 50 ML IV SCH ×2 (11:58→22:58)
[2021-11-25 14:16] VITALS: BP 128/72
[2021-11-25 21:00] VITALS: O2SAT 97
[2021-11-25] MEDS: RAMELTEON 8 MG TAB (ROZEREM) PO PRN (21:37)
[2021-11-25] MEDS: ACETAMINOPHEN TAB 650MG DOSE (2X325MG) PO PRN (21:38)
[2021-11-25] MEDS: HEPARIN SOD (PORCINE) 5000UNITS/ML 1ML VIAL/SYRINGE SQ SCH (21:38)
[2021-11-25 22:00] VITALS: BP 160/66
[2021-11-26] VITALS (10 sets, daily range): BP systolic 109–165; BP diastolic 50–85; O2SAT 97
[2021-11-26] MEDS: ACETAMINOPHEN TAB 650MG DOSE (2X325MG) PO PRN ×2 (05:20→20:58)
[2021-11-26] MEDS: HEPARIN SOD (PORCINE) 5000UNITS/ML 1ML VIAL/SYRINGE SQ SCH ×3 (05:21→20:58)
[2021-11-26 07:29] LABS: BASO % 0.3 % (0.0-1.0); EOS % 0.1 % (0.0-3.0); HEMATOCRIT 24.5 % (42.0-52.0); HEMOGLOBIN 7.2 g/dl (13.5-17.5); LYMPH % 10.7 % (24.0-44.0); MEAN CORPUSCULAR HEMOGLOBIN 26.2 pg (27.0-33.0); MEAN CORPUSCULAR HGB CONC 29.4 g/dl (32.0-36.5); MEAN CORPUSCULAR VOLUME 89.1 fl (80.0-96.0); MONO # 0.7 10^3/uL (0.0-0.8); MONO % 7.7 % (2.0-8.0); NEUTROPHILS # 7.2 10^3/uL (1.5-8.5); NEUTROPHILS % 80.5 % (36.0-66.0); PLATELET COUNT, AUTOMATED 284 10^3/uL (150-450); RED BLOOD COUNT 2.75 10^6/uL (4.30-6.10)
[2021-11-26] MEDS: HumaLOG INSULIN (NovoLOG) PER UNIT SC SCH ×4 (07:30→21:00)
[2021-11-26 07:56] LABS: C REACTIVE PROTEIN QUANTITATIV 24.9 MG/DL (0.00-0.30); CALCIUM LEVEL 10.3 MG/DL (8.8-10.2); CREATININE FOR GFR 1.4 MG/DL (0.70-1.30); GLOMERULAR FILTRATION RATE 51.3 (>35); POTASSIUM SERUM 3.4 MEQ/L (3.5-5.1); VANCOMYCIN LEVEL TROUGH 15.7 UG/ML (10.0-20.0)
[2021-11-26 08:05] LABS: ERYTHROCYTE SEDIMENTATION RATE 127 mm/hr (0-20)
[2021-11-26] MEDS: ASPIRIN 81MG ENTERIC TABLET PO SCH (08:08)
[2021-11-26] MEDS: OMEPRAZOLE 20MG CAP PO SCH (08:08)
[2021-11-26] MEDS: ATORVASTATIN 20 MG TAB PO SCH (08:08)
[2021-11-26] MEDS: TAMSULOSIN 0.4 MG CAP PO SCH (08:09)
[2021-11-26] MEDS: predniSONE 10 MG TAB PO SCH (08:09)
[2021-11-26] MEDS: VANCOMYCIN HCL 1,000 MG, VIAL MATE ADAPTER 1 EACH in NS 250 ML IV SCH (08:12)
[2021-11-26] MEDS: atenoloL 50 MG TAB PO SCH (08:15)
[2021-11-26] MEDS ORDERED: POTASSIUM CHLORIDE 10% LIQ 20 MEQ/15 ML UDC PO ONE (10:00)
[2021-11-26] MEDS: CEFEPIME HCL 2 GM in D5W MINI-BAG PLUS 50 ML IV SCH ×2 (10:00→22:31)
[2021-11-26 10:42] LABS: MAGNESIUM LEVEL 2.3 MG/DL (1.8-2.4)
[2021-11-26] MEDS: NS 1,000 ML IV SCH ×2 (11:40→20:58)
[2021-11-26] MEDS: RAMELTEON 8 MG TAB (ROZEREM) PO PRN (20:57)
[2021-11-26 21:36] LABS: HEMATOCRIT 35.2 % (42.0-52.0)
[2021-11-26 21:37] LABS: HEMOGLOBIN 10.9 g/dl (13.5-17.5)
[2021-11-26] MEDS ORDERED: OLANZapine INTRAMUSCULAR 10MG VIAL IM PRN (21:45)
[2021-11-27] MEDS: HEPARIN SOD (PORCINE) 5000UNITS/ML 1ML VIAL/SYRINGE SQ SCH ×3 (05:34→22:04)
[2021-11-27] MEDS: VANCOMYCIN HCL 1,000 MG, VIAL MATE ADAPTER 1 EACH in NS 250 ML IV SCH (08:02)
[2021-11-27] MEDS: ASPIRIN 81MG ENTERIC TABLET PO SCH (08:04)
[2021-11-27] MEDS: ATORVASTATIN 20 MG TAB PO SCH (08:04)
[2021-11-27] MEDS: predniSONE 10 MG TAB PO SCH (08:04)
[2021-11-27] MEDS: OMEPRAZOLE 20MG CAP PO SCH (08:04)
[2021-11-27] MEDS: TAMSULOSIN 0.4 MG CAP PO SCH (08:04)
[2021-11-27] MEDS: ACETAMINOPHEN TAB 650MG DOSE (2X325MG) PO PRN (08:04)
[2021-11-27] MEDS: HumaLOG INSULIN (NovoLOG) PER UNIT SC SCH ×4 (08:05→21:00)
[2021-11-27] MEDS: atenoloL 50 MG TAB PO SCH (08:13)
[2021-11-27 08:53] LABS: BASO % 0.4 % (0.0-1.0); EOS % 0.1 % (0.0-3.0); HEMOGLOBIN 10.9 g/dl (13.5-17.5); LYMPH # 0.9 10^3/uL (1.5-5.0); LYMPH % 10.7 % (24.0-44.0); MEAN CORPUSCULAR HEMOGLOBIN 27.9 pg (27.0-33.0); MEAN CORPUSCULAR HGB CONC 32.1 g/dl (32.0-36.5); MEAN CORPUSCULAR VOLUME 87.2 fl (80.0-96.0); MONO # 0.6 10^3/uL (0.0-0.8); MONO % 7.7 % (2.0-8.0); NEUTROPHILS # 6.5 10^3/uL (1.5-8.5); NEUTROPHILS % 80.4 % (36.0-66.0); PLATELET COUNT, AUTOMATED 312 10^3/uL (150-450)
[2021-11-27 09:13] LABS: C REACTIVE PROTEIN QUANTITATIV 15.2 MG/DL (0.00-0.30); CALCIUM LEVEL 10.1 MG/DL (8.8-10.2); CREATININE FOR GFR 1.48 MG/DL (0.70-1.30); GLOMERULAR FILTRATION RATE 48.1 (>35); POTASSIUM SERUM 3.8 MEQ/L (3.5-5.1)
[2021-11-27 10:29] LABS: ERYTHROCYTE SEDIMENTATION RATE 70 mm/hr (0-20)
[2021-11-27] MEDS: CEFEPIME HCL 2 GM in D5W MINI-BAG PLUS 50 ML IV SCH ×2 (11:57→22:04)
[2021-11-27 14:00] VITALS: BP 109/73
[2021-11-27] MEDS: NS 1,000 ML IV SCH (17:33)
[2021-11-27] MEDS: D5W/0.9% SODIUM CHLORIDE 1,000 ML IV SCH (21:04)
[2021-11-27] MEDS: QUEtiapine FUMARATE 25 MG TAB PO SCH (21:05)
[2021-11-27 22:00] VITALS: BP 140/70
[2021-11-28] MEDS: ACETAMINOPHEN TAB 650MG DOSE (2X325MG) PO PRN (02:24)
[2021-11-28] MEDS: HEPARIN SOD (PORCINE) 5000UNITS/ML 1ML VIAL/SYRINGE SQ SCH ×3 (05:40→21:45)
[2021-11-28] MEDS: D5W/0.9% SODIUM CHLORIDE 1,000 ML IV SCH ×3 (05:40→22:31)
[2021-11-28 06:00] VITALS: BP 122/82
[2021-11-28 08:45] LABS: BASO % 0.2 % (0.0-1.0); EOS % 0.5 % (0.0-3.0); HEMATOCRIT 35.9 % (42.0-52.0); HEMOGLOBIN 11.2 g/dl (13.5-17.5); LYMPH # 0.9 10^3/uL (1.5-5.0); LYMPH % 10.9 % (24.0-44.0); MEAN CORPUSCULAR HEMOGLOBIN 27.8 pg (27.0-33.0); MEAN CORPUSCULAR HGB CONC 31.2 g/dl (32.0-36.5); MEAN CORPUSCULAR VOLUME 89.1 fl (80.0-96.0); MONO # 0.6 10^3/uL (0.0-0.8); MONO % 6.5 % (2.0-8.0); NEUTROPHILS % 81.3 % (36.0-66.0); PLATELET COUNT, AUTOMATED 338 10^3/uL (150-450); RED BLOOD COUNT 4.03 10^6/uL (4.30-6.10); WHITE BLOOD COUNT 8.6 10^3/uL (4.0-10.0)
[2021-11-28] MEDS: VANCOMYCIN HCL 1,000 MG, VIAL MATE ADAPTER 1 EACH in NS 250 ML IV SCH (08:52)
[2021-11-28] MEDS: ASPIRIN 81MG ENTERIC TABLET PO SCH (08:54)
[2021-11-28] MEDS: predniSONE 10 MG TAB PO SCH (08:54)
[2021-11-28] MEDS: OMEPRAZOLE 20MG CAP PO SCH (08:55)
[2021-11-28] MEDS: TAMSULOSIN 0.4 MG CAP PO SCH (08:55)
[2021-11-28] MEDS: atenoloL 50 MG TAB PO SCH (08:55)
[2021-11-28] MEDS: ATORVASTATIN 20 MG TAB PO SCH (08:55)
[2021-11-28] MEDS: HumaLOG INSULIN (NovoLOG) PER UNIT SC SCH ×4 (09:01→21:00)
[2021-11-28 09:12] LABS: ALBUMIN 2.1 GM/DL (3.2-5.2); BILIRUBIN,TOTAL 0.4 MG/DL (0.2-1.0); C REACTIVE PROTEIN QUANTITATIV 10.2 MG/DL (0.00-0.30); CALCIUM LEVEL 10.3 MG/DL (8.8-10.2); CREATININE FOR GFR 1.46 MG/DL (0.70-1.30); GLOMERULAR FILTRATION RATE 48.9 (>35); MAGNESIUM LEVEL 1.8 MG/DL (1.8-2.4); POTASSIUM SERUM 3.5 MEQ/L (3.5-5.1); TOTAL PROTEIN 6.5 GM/DL (6.4-8.2); VANCOMYCIN LEVEL TROUGH 22.6 UG/ML (10.0-20.0)
[2021-11-28] MEDS ORDERED: NS 1,000 ML IV SCH (11:45)
[2021-11-28] MEDS: CEFEPIME HCL 2 GM in D5W MINI-BAG PLUS 50 ML IV SCH ×2 (11:51→22:31)
[2021-11-28 13:07] LABS: PTH INTACT 132.2 PG/ML (18.5-88.0); TOTAL 25(OH) VITAMIN D 31.6 NG/ML (30.0-100.0)
[2021-11-28 14:00] VITALS: BP 122/85
[2021-11-28] MEDS: QUEtiapine FUMARATE 25 MG TAB PO SCH (17:40)
[2021-11-29 06:00] VITALS: BP 165/77
[2021-11-29] MEDS: D5W/0.9% SODIUM CHLORIDE 1,000 ML IV SCH ×2 (06:17→14:10)
[2021-11-29] MEDS: HEPARIN SOD (PORCINE) 5000UNITS/ML 1ML VIAL/SYRINGE SQ SCH ×3 (06:19→21:04)
[2021-11-29] MEDS: HumaLOG INSULIN (NovoLOG) PER UNIT SC SCH ×4 (07:30→21:00)
[2021-11-29 07:40] LABS: BASO % 0.2 % (0.0-1.0); EOS % 0.5 % (0.0-3.0); HEMOGLOBIN 10.4 g/dl (13.5-17.5); LYMPH # 0.9 10^3/uL (1.5-5.0); LYMPH % 13.1 % (24.0-44.0); MEAN CORPUSCULAR HEMOGLOBIN 27.4 pg (27.0-33.0); MEAN CORPUSCULAR HGB CONC 30.6 g/dl (32.0-36.5); MEAN CORPUSCULAR VOLUME 89.5 fl (80.0-96.0); MONO # 0.7 10^3/uL (0.0-0.8); MONO % 10.5 % (2.0-8.0); NEUTROPHILS % 74.5 % (36.0-66.0); PLATELET COUNT, AUTOMATED 285 10^3/uL (150-450); WHITE BLOOD COUNT 6.7 10^3/uL (4.0-10.0)
[2021-11-29 08:02] LABS: ALBUMIN 1.9 GM/DL (3.2-5.2); ALT/SGPT 13 U/L (12-78); BILIRUBIN,TOTAL 0.3 MG/DL (0.2-1.0); BLOOD UREA NITROGEN 21 MG/DL (7-18); C REACTIVE PROTEIN QUANTITATIV 5.63 MG/DL (0.00-0.30); CALCIUM LEVEL 9.8 MG/DL (8.8-10.2); CARBON DIOXIDE LEVEL 25 MEQ/L (21-32); CHLORIDE LEVEL 113 MEQ/L (98-107); CREATININE FOR GFR 1.09 MG/DL (0.70-1.30); GLOMERULAR FILTRATION RATE > 60.0 (>35); GLUCOSE, FASTING 106 MG/DL (70-100); MAGNESIUM LEVEL 1.7 MG/DL (1.8-2.4); POTASSIUM SERUM 3.5 MEQ/L (3.5-5.1); SODIUM LEVEL 145 MEQ/L (136-145); TOTAL PROTEIN 5.2 GM/DL (6.4-8.2); VANCOMYCIN LEVEL TROUGH 18.8 UG/ML (10.0-20.0)
[2021-11-29] MEDS: VANCOMYCIN HCL 500 MG in D5W MINI-BAG PLUS 100 ML IV SCH (08:48)
[2021-11-29] MEDS: TAMSULOSIN 0.4 MG CAP PO SCH (08:52)
[2021-11-29] MEDS: OMEPRAZOLE 20MG CAP PO SCH (08:53)
[2021-11-29] MEDS: ASPIRIN 81MG ENTERIC TABLET PO SCH (08:53)
[2021-11-29] MEDS: ATORVASTATIN 20 MG TAB PO SCH (08:54)
[2021-11-29] MEDS: atenoloL 50 MG TAB PO SCH (08:54)
[2021-11-29] MEDS: predniSONE 10 MG TAB PO SCH (08:55)
[2021-11-29] MEDS ORDERED: MAG SULF 1GM/100ML (MAG RUN) 1 GM in IV 1 EA IV ONE (09:00)
[2021-11-29] MEDS: CEFEPIME HCL 2 GM in D5W MINI-BAG PLUS 50 ML IV SCH ×2 (11:35→22:33)
[2021-11-29 14:00] VITALS: BP 165/78
[2021-11-29] MEDS: QUEtiapine FUMARATE 25 MG TAB PO SCH (17:26)
[2021-11-30] MEDS: HEPARIN SOD (PORCINE) 5000UNITS/ML 1ML VIAL/SYRINGE SQ SCH ×3 (05:19→20:50)
[2021-11-30 06:00] VITALS: BP 160/90
[2021-11-30] MEDS: HumaLOG INSULIN (NovoLOG) PER UNIT SC SCH ×4 (06:56→21:00)
[2021-11-30 08:18] LABS: BASO % 0.4 % (0.0-1.0); EOS # 0.1 10^3/uL (0.0-0.5); HEMATOCRIT 34.1 % (42.0-52.0); HEMOGLOBIN 10.6 g/dl (13.5-17.5); LYMPH # 1.2 10^3/uL (1.5-5.0); LYMPH % 14.8 % (24.0-44.0); MEAN CORPUSCULAR HEMOGLOBIN 27.4 pg (27.0-33.0); MEAN CORPUSCULAR HGB CONC 31.1 g/dl (32.0-36.5); MEAN CORPUSCULAR VOLUME 88.1 fl (80.0-96.0); MONO # 0.8 10^3/uL (0.0-0.8); MONO % 10.4 % (2.0-8.0); NEUTROPHILS # 5.7 10^3/uL (1.5-8.5); NEUTROPHILS % 71.6 % (36.0-66.0); PLATELET COUNT, AUTOMATED 307 10^3/uL (150-450); RED BLOOD COUNT 3.87 10^6/uL (4.30-6.10)
[2021-11-30 08:47] LABS: ALBUMIN 1.8 GM/DL (3.2-5.2); ALT/SGPT 20 U/L (12-78); BILIRUBIN,TOTAL 0.3 MG/DL (0.2-1.0); BLOOD UREA NITROGEN 18 MG/DL (7-18); C REACTIVE PROTEIN QUANTITATIV 3.05 MG/DL (0.00-0.30); CALCIUM LEVEL 10.2 MG/DL (8.8-10.2); CARBON DIOXIDE LEVEL 25 MEQ/L (21-32); CHLORIDE LEVEL 113 MEQ/L (98-107); CREATININE FOR GFR 1.05 MG/DL (0.70-1.30); GLOMERULAR FILTRATION RATE > 60.0 (>35); GLUCOSE, FASTING 89 MG/DL (70-100); MAGNESIUM LEVEL 1.8 MG/DL (1.8-2.4); POTASSIUM SERUM 3.6 MEQ/L (3.5-5.1); SODIUM LEVEL 143 MEQ/L (136-145); TOTAL PROTEIN 5.1 GM/DL (6.4-8.2); VANCOMYCIN LEVEL TROUGH 18.7 UG/ML (10.0-20.0)
[2021-11-30] MEDS: ATORVASTATIN 20 MG TAB PO SCH (09:22)
[2021-11-30] MEDS: VANCOMYCIN HCL 500 MG in D5W MINI-BAG PLUS 100 ML IV SCH (09:22)
[2021-11-30] MEDS: ASPIRIN 81MG ENTERIC TABLET PO SCH (09:23)
[2021-11-30] MEDS: predniSONE 10 MG TAB PO SCH (09:23)
[2021-11-30] MEDS: OMEPRAZOLE 20MG CAP PO SCH (09:23)
[2021-11-30] MEDS: TAMSULOSIN 0.4 MG CAP PO SCH (09:24)
[2021-11-30] MEDS: atenoloL 50 MG TAB PO SCH (09:25)
[2021-11-30] MEDS: CEFEPIME HCL 2 GM in D5W MINI-BAG PLUS 50 ML IV SCH ×2 (11:20→23:14)
[2021-11-30] MEDS: amLODIPine 5 MG TAB PO SCH (13:15)
[2021-11-30 14:00] VITALS: BP 165/84
[2021-11-30] MEDS ORDERED: D5W/0.45% SODIUM CHLORIDE 1,000 ML IV SCH (17:15)
[2021-11-30] MEDS: QUEtiapine FUMARATE 25 MG TAB PO SCH (17:48)
[2021-11-30] MEDS: RAMELTEON 8 MG TAB (ROZEREM) PO PRN (20:50)
[2021-11-30 22:00] VITALS: BP 161/73
[2021-12-01 06:00] VITALS: BP 158/96
[2021-12-01] MEDS: HEPARIN SOD (PORCINE) 5000UNITS/ML 1ML VIAL/SYRINGE SQ SCH ×3 (06:01→20:40)
[2021-12-01 07:00] LABS: BASO % 0.3 % (0.0-1.0); EOS # 0.1 10^3/uL (0.0-0.5); EOS % 0.7 % (0.0-3.0); HEMATOCRIT 33.5 % (42.0-52.0); HEMOGLOBIN 10.5 g/dl (13.5-17.5); LYMPH # 1.2 10^3/uL (1.5-5.0); LYMPH % 15.6 % (24.0-44.0); MEAN CORPUSCULAR HEMOGLOBIN 27.6 pg (27.0-33.0); MEAN CORPUSCULAR HGB CONC 31.3 g/dl (32.0-36.5); MEAN CORPUSCULAR VOLUME 88.2 fl (80.0-96.0); MONO # 0.9 10^3/uL (0.0-0.8); MONO % 11.7 % (2.0-8.0); NEUTROPHILS # 5.1 10^3/uL (1.5-8.5); PLATELET COUNT, AUTOMATED 298 10^3/uL (150-450); WHITE BLOOD COUNT 7.4 10^3/uL (4.0-10.0)
[2021-12-01 07:29] LABS: ALBUMIN 1.9 GM/DL (3.2-5.2); ALT/SGPT 17 U/L (12-78); BILIRUBIN,TOTAL 0.3 MG/DL (0.2-1.0); BLOOD UREA NITROGEN 19 MG/DL (7-18); C REACTIVE PROTEIN QUANTITATIV 2.12 MG/DL (0.00-0.30); CALCIUM LEVEL 10.5 MG/DL (8.8-10.2); CARBON DIOXIDE LEVEL 30 MEQ/L (21-32); CHLORIDE LEVEL 111 MEQ/L (98-107); CREATININE FOR GFR 1.17 MG/DL (0.70-1.30); GLOMERULAR FILTRATION RATE > 60.0 (>35); GLUCOSE, FASTING 85 MG/DL (70-100); MAGNESIUM LEVEL 1.6 MG/DL (1.8-2.4); POTASSIUM SERUM 3.3 MEQ/L (3.5-5.1); SODIUM LEVEL 143 MEQ/L (136-145)
[2021-12-01] MEDS: HumaLOG INSULIN (NovoLOG) PER UNIT SC SCH ×4 (07:30→21:00)
[2021-12-01] MEDS ORDERED: POTASSIUM CHLORIDE 10MEQ SR TABLET PO ONE (08:00)
[2021-12-01] MEDS: TAMSULOSIN 0.4 MG CAP PO SCH (08:59)
[2021-12-01] MEDS: ASPIRIN 81MG ENTERIC TABLET PO SCH (08:59)
[2021-12-01] MEDS: ATORVASTATIN 20 MG TAB PO SCH (08:59)
[2021-12-01] MEDS: predniSONE 10 MG TAB PO SCH (08:59)
[2021-12-01] MEDS: OMEPRAZOLE 20MG CAP PO SCH (08:59)
[2021-12-01] MEDS: MAG SULF 1GM/100ML (MAG RUN) 1 GM in IV 1 EA IV SCH ×2 (09:00→11:12)
[2021-12-01] MEDS: atenoloL 50 MG TAB PO SCH (09:01)
[2021-12-01] MEDS: amLODIPine 5 MG TAB PO SCH (09:02)
[2021-12-01] MEDS: VANCOMYCIN HCL 500 MG in D5W MINI-BAG PLUS 100 ML IV SCH (10:06)
[2021-12-01] MEDS: CALCITONIN SALMON (MIACALCIN) 400INTERNATIONAL UNITS/2ML INJ (J0630) SQ SCH ×2 (11:12→20:35)
[2021-12-01] MEDS: CEFEPIME HCL 2 GM in D5W MINI-BAG PLUS 50 ML IV SCH ×2 (12:26→23:20)
[2021-12-01 12:49] LABS: MAGNESIUM LEVEL 2.7 MG/DL (1.8-2.4); POTASSIUM SERUM 4.4 MEQ/L (3.5-5.1)
[2021-12-01 14:00] VITALS: BP 160/107
[2021-12-01] MEDS: QUEtiapine FUMARATE 25 MG TAB PO SCH (17:50)
[2021-12-01 20:29] VITALS: BP 168/80
[2021-12-01] MEDS: RAMELTEON 8 MG TAB (ROZEREM) PO PRN (20:40)
[2021-12-02] MEDS: HEPARIN SOD (PORCINE) 5000UNITS/ML 1ML VIAL/SYRINGE SQ SCH ×3 (05:10→20:00)
[2021-12-02 06:00] VITALS: BP 166/85
[2021-12-02 06:48] LABS: BASO % 0.1 % (0.0-1.0); EOS # 0.1 10^3/uL (0.0-0.5); EOS % 0.5 % (0.0-3.0); HEMATOCRIT 33.1 % (42.0-52.0); HEMOGLOBIN 10.3 g/dl (13.5-17.5); LYMPH # 1.3 10^3/uL (1.5-5.0); LYMPH % 14.1 % (24.0-44.0); MEAN CORPUSCULAR HEMOGLOBIN 27.3 pg (27.0-33.0); MEAN CORPUSCULAR HGB CONC 31.1 g/dl (32.0-36.5); MEAN CORPUSCULAR VOLUME 87.8 fl (80.0-96.0); MONO # 1.1 10^3/uL (0.0-0.8); MONO % 11.2 % (2.0-8.0); NEUTROPHILS # 6.7 10^3/uL (1.5-8.5); NEUTROPHILS % 71.7 % (36.0-66.0); PLATELET COUNT, AUTOMATED 316 10^3/uL (150-450); RED BLOOD COUNT 3.77 10^6/uL (4.30-6.10); WHITE BLOOD COUNT 9.4 10^3/uL (4.0-10.0)
[2021-12-02 06:51] VITALS: BP 145/66
[2021-12-02 07:18] LABS: ALBUMIN 1.9 GM/DL (3.2-5.2); ALT/SGPT 18 U/L (12-78); BILIRUBIN,TOTAL 0.3 MG/DL (0.2-1.0); BLOOD UREA NITROGEN 17 MG/DL (7-18); CALCIUM LEVEL 9.6 MG/DL (8.8-10.2); CARBON DIOXIDE LEVEL 30 MEQ/L (21-32); CHLORIDE LEVEL 110 MEQ/L (98-107); CREATININE FOR GFR 1.03 MG/DL (0.70-1.30); GLOMERULAR FILTRATION RATE > 60.0 (>35); GLUCOSE, FASTING 91 MG/DL (70-100); MAGNESIUM LEVEL 1.9 MG/DL (1.8-2.4); POTASSIUM SERUM 3.9 MEQ/L (3.5-5.1); SODIUM LEVEL 142 MEQ/L (136-145)
[2021-12-02] MEDS: HumaLOG INSULIN (NovoLOG) PER UNIT SC SCH ×4 (07:24→21:00)
[2021-12-02] MEDS: OMEPRAZOLE 20MG CAP PO SCH (09:51)
[2021-12-02] MEDS: ATORVASTATIN 20 MG TAB PO SCH (09:51)
[2021-12-02] MEDS: CEPHALEXIN 500 MG CAP PO SCH ×4 (09:52→20:00)
[2021-12-02] MEDS: TAMSULOSIN 0.4 MG CAP PO SCH (09:52)
[2021-12-02] MEDS: ASPIRIN 81MG ENTERIC TABLET PO SCH (09:52)
[2021-12-02] MEDS: atenoloL 25 MG TAB PO SCH (09:53)
[2021-12-02] MEDS: predniSONE 20 MG TAB PO SCH (11:41)
[2021-12-02] MEDS ORDERED: PAMIDRONATE DISODIUM FOR INJ 60 MG in D5W 1,000 ML IV ONE (14:00)
[2021-12-02] MEDS: QUEtiapine FUMARATE 25 MG TAB PO SCH (17:07)
[2021-12-02 19:50] VITALS: BP 162/99
[2021-12-02] MEDS: RAMELTEON 8 MG TAB (ROZEREM) PO PRN (19:59)
[2021-12-02] MEDS: ACETAMINOPHEN TAB 650MG DOSE (2X325MG) PO PRN (20:00)
[2021-12-03 05:19] VITALS: BP 164/67
[2021-12-03] MEDS: HEPARIN SOD (PORCINE) 5000UNITS/ML 1ML VIAL/SYRINGE SQ SCH ×3 (05:35→21:11)
[2021-12-03 07:09] LABS: BASO % 0.2 % (0.0-1.0); EOS % 0.3 % (0.0-3.0); HEMATOCRIT 34.7 % (42.0-52.0); HEMOGLOBIN 10.9 g/dl (13.5-17.5); LYMPH # 1.2 10^3/uL (1.5-5.0); LYMPH % 13.5 % (24.0-44.0); MEAN CORPUSCULAR HEMOGLOBIN 27.5 pg (27.0-33.0); MEAN CORPUSCULAR HGB CONC 31.4 g/dl (32.0-36.5); MEAN CORPUSCULAR VOLUME 87.4 fl (80.0-96.0); MONO # 0.9 10^3/uL (0.0-0.8); MONO % 9.5 % (2.0-8.0); NEUTROPHILS # 6.6 10^3/uL (1.5-8.5); NEUTROPHILS % 74.2 % (36.0-66.0); PLATELET COUNT, AUTOMATED 291 10^3/uL (150-450); RED BLOOD COUNT 3.97 10^6/uL (4.30-6.10)
[2021-12-03] MEDS: HumaLOG INSULIN (NovoLOG) PER UNIT SC SCH ×4 (07:30→21:00)
[2021-12-03 07:31] LABS: BLOOD UREA NITROGEN 15 MG/DL (7-18); CARBON DIOXIDE LEVEL 28 MEQ/L (21-32); CHLORIDE LEVEL 109 MEQ/L (98-107); CREATININE FOR GFR 0.97 MG/DL (0.70-1.30); GLOMERULAR FILTRATION RATE > 60.0 (>35); GLUCOSE, FASTING 82 MG/DL (70-100); POTASSIUM SERUM 3.3 MEQ/L (3.5-5.1); SODIUM LEVEL 143 MEQ/L (136-145)
[2021-12-03 07:32] LABS: ALT/SGPT 17 U/L (12-78); BILIRUBIN,TOTAL 0.3 MG/DL (0.2-1.0); CALCIUM LEVEL 9.7 MG/DL (8.8-10.2); MAGNESIUM LEVEL 1.8 MG/DL (1.8-2.4); TOTAL PROTEIN 5.6 GM/DL (6.4-8.2)
[2021-12-03] MEDS: ACETAMINOPHEN TAB 650MG DOSE (2X325MG) PO PRN (09:44)
[2021-12-03] MEDS: atenoloL 25 MG TAB PO SCH (09:44)
[2021-12-03] MEDS: ASPIRIN 81MG ENTERIC TABLET PO SCH (09:44)
[2021-12-03] MEDS: CEPHALEXIN 500 MG CAP PO SCH ×4 (09:45→21:11)
[2021-12-03] MEDS: TAMSULOSIN 0.4 MG CAP PO SCH (09:45)
[2021-12-03] MEDS: ATORVASTATIN 20 MG TAB PO SCH (09:45)
[2021-12-03] MEDS: OMEPRAZOLE 20MG CAP PO SCH (09:45)
[2021-12-03] MEDS: predniSONE 20 MG TAB PO SCH (09:45)
[2021-12-03] MEDS: QUEtiapine FUMARATE 25 MG TAB PO SCH (17:05)
[2021-12-04] MEDS: HEPARIN SOD (PORCINE) 5000UNITS/ML 1ML VIAL/SYRINGE SQ SCH ×3 (06:23→20:47)
[2021-12-04 06:27] VITALS: BP 163/77
[2021-12-04 07:01] LABS: BASO % 0.1 % (0.0-1.0); EOS % 0.4 % (0.0-3.0); HEMOGLOBIN 11.4 g/dl (13.5-17.5); LYMPH # 1.4 10^3/uL (1.5-5.0); LYMPH % 14.9 % (24.0-44.0); MEAN CORPUSCULAR HEMOGLOBIN 27.1 pg (27.0-33.0); MEAN CORPUSCULAR HGB CONC 30.8 g/dl (32.0-36.5); MEAN CORPUSCULAR VOLUME 87.9 fl (80.0-96.0); MONO % 11.3 % (2.0-8.0); NEUTROPHILS # 6.6 10^3/uL (1.5-8.5); NEUTROPHILS % 71.6 % (36.0-66.0); PLATELET COUNT, AUTOMATED 296 10^3/uL (150-450); RED BLOOD COUNT 4.21 10^6/uL (4.30-6.10); WHITE BLOOD COUNT 9.2 10^3/uL (4.0-10.0)
[2021-12-04 07:23] LABS: ALBUMIN 2.2 GM/DL (3.2-5.2); ALT/SGPT 20 U/L (12-78); BILIRUBIN,TOTAL 0.3 MG/DL (0.2-1.0); BLOOD UREA NITROGEN 16 MG/DL (7-18); CARBON DIOXIDE LEVEL 29 MEQ/L (21-32); CHLORIDE LEVEL 108 MEQ/L (98-107); CREATININE FOR GFR 1.02 MG/DL (0.70-1.30); GLOMERULAR FILTRATION RATE > 60.0 (>35); GLUCOSE, FASTING 76 MG/DL (70-100); MAGNESIUM LEVEL 1.8 MG/DL (1.8-2.4); POTASSIUM SERUM 3.3 MEQ/L (3.5-5.1); SODIUM LEVEL 146 MEQ/L (136-145); TOTAL PROTEIN 5.5 GM/DL (6.4-8.2)
[2021-12-04] MEDS: HumaLOG INSULIN (NovoLOG) PER UNIT SC SCH ×4 (07:30→20:11)
[2021-12-04] MEDS: ASPIRIN 81MG ENTERIC TABLET PO SCH (09:12)
[2021-12-04] MEDS: atenoloL 25 MG TAB PO SCH (09:12)
[2021-12-04] MEDS: ATORVASTATIN 20 MG TAB PO SCH (09:12)
[2021-12-04] MEDS: OMEPRAZOLE 20MG CAP PO SCH (09:12)
[2021-12-04] MEDS: CEPHALEXIN 500 MG CAP PO SCH (09:12)
[2021-12-04] MEDS: predniSONE 20 MG TAB PO SCH (09:13)
[2021-12-04] MEDS: TAMSULOSIN 0.4 MG CAP PO SCH (09:13)
[2021-12-04] MEDS: QUEtiapine FUMARATE 25 MG TAB PO SCH (17:04)
[2021-12-04] MEDS: RAMELTEON 8 MG TAB (ROZEREM) PO PRN (22:31)
[2021-12-04] MEDS: ACETAMINOPHEN TAB 650MG DOSE (2X325MG) PO PRN (22:31)
[2021-12-05] MEDS: HEPARIN SOD (PORCINE) 5000UNITS/ML 1ML VIAL/SYRINGE SQ SCH ×3 (05:03→23:46)
[2021-12-05 06:12] VITALS: BP 161/71
[2021-12-05] MEDS: HumaLOG INSULIN (NovoLOG) PER UNIT SC SCH ×4 (07:24→22:26)
[2021-12-05] MEDS: ATORVASTATIN 20 MG TAB PO SCH (09:16)
[2021-12-05] MEDS: ASPIRIN 81MG ENTERIC TABLET PO SCH (09:16)
[2021-12-05] MEDS: atenoloL 25 MG TAB PO SCH (09:17)
[2021-12-05] MEDS: OMEPRAZOLE 20MG CAP PO SCH (09:17)
[2021-12-05] MEDS: TAMSULOSIN 0.4 MG CAP PO SCH (09:17)
[2021-12-05] MEDS: predniSONE 10 MG TAB PO SCH (09:17)
[2021-12-05 14:00] VITALS: BP 120/58
[2021-12-05] MEDS: QUEtiapine FUMARATE 25 MG TAB PO SCH (17:22)
[2021-12-06 06:00] VITALS: BP 158/72
[2021-12-06] MEDS: HEPARIN SOD (PORCINE) 5000UNITS/ML 1ML VIAL/SYRINGE SQ SCH ×3 (06:00→20:23)
[2021-12-06] MEDS: HumaLOG INSULIN (NovoLOG) PER UNIT SC SCH ×4 (07:18→20:24)
[2021-12-06] MEDS: predniSONE 10 MG TAB PO SCH (08:27)
[2021-12-06] MEDS: atenoloL 25 MG TAB PO SCH (08:27)
[2021-12-06] MEDS: OMEPRAZOLE 20MG CAP PO SCH (08:27)
[2021-12-06] MEDS: ATORVASTATIN 20 MG TAB PO SCH (08:27)
[2021-12-06] MEDS: TAMSULOSIN 0.4 MG CAP PO SCH (08:27)
[2021-12-06] MEDS: ASPIRIN 81MG ENTERIC TABLET PO SCH (08:27)
[2021-12-06] MEDS: QUEtiapine FUMARATE 25 MG TAB PO SCH (17:00)
[2021-12-06] MEDS: RAMELTEON 8 MG TAB (ROZEREM) PO PRN (20:22)
[2021-12-06] MEDS: ACETAMINOPHEN TAB 650MG DOSE (2X325MG) PO PRN (20:23)
[2021-12-07 06:00] VITALS: BP 151/77
[2021-12-07] MEDS: HEPARIN SOD (PORCINE) 5000UNITS/ML 1ML VIAL/SYRINGE SQ SCH ×3 (06:08→21:08)
[2021-12-07] MEDS: HumaLOG INSULIN (NovoLOG) PER UNIT SC SCH ×4 (07:30→21:00)
[2021-12-07] MEDS: ASPIRIN 81MG ENTERIC TABLET PO SCH (08:22)
[2021-12-07] MEDS: OMEPRAZOLE 20MG CAP PO SCH (08:23)
[2021-12-07] MEDS: TAMSULOSIN 0.4 MG CAP PO SCH (08:23)
[2021-12-07] MEDS: predniSONE 10 MG TAB PO SCH (08:23)
[2021-12-07] MEDS: atenoloL 25 MG TAB PO SCH (08:23)
[2021-12-07] MEDS: ATORVASTATIN 20 MG TAB PO SCH (08:23)
[2021-12-07] MEDS: SENOKOT S TAB PO SCH ×2 (10:45→21:09)
[2021-12-07] MEDS ORDERED: BISACODYL 10 MG SUPP PR ONE (11:00)
[2021-12-07] MEDS ORDERED: BISACODYL 10 MG SUPP PR PRN (12:00)
[2021-12-07] MEDS: QUEtiapine FUMARATE 25 MG TAB PO SCH (17:50)
[2021-12-07] MEDS: RAMELTEON 8 MG TAB (ROZEREM) PO PRN (21:09)
[2021-12-07] MEDS: ACETAMINOPHEN TAB 650MG DOSE (2X325MG) PO PRN (21:09)
[2021-12-08 05:55] VITALS: BP 154/74
[2021-12-08] MEDS: HEPARIN SOD (PORCINE) 5000UNITS/ML 1ML VIAL/SYRINGE SQ SCH ×3 (05:55→21:03)
[2021-12-08] MEDS: HumaLOG INSULIN (NovoLOG) PER UNIT SC SCH ×4 (07:30→21:00)
[2021-12-08] MEDS: ASPIRIN 81MG ENTERIC TABLET PO SCH (09:14)
[2021-12-08] MEDS: OMEPRAZOLE 20MG CAP PO SCH (09:14)
[2021-12-08] MEDS: TAMSULOSIN 0.4 MG CAP PO SCH (09:14)
[2021-12-08] MEDS: ATORVASTATIN 20 MG TAB PO SCH (09:14)
[2021-12-08] MEDS: atenoloL 25 MG TAB PO SCH (09:15)
[2021-12-08] MEDS: SENOKOT S TAB PO SCH ×3 (09:15→21:03)
[2021-12-08] MEDS: QUEtiapine FUMARATE 25 MG TAB PO SCH (17:03)
[2021-12-08] MEDS: RAMELTEON 8 MG TAB (ROZEREM) PO PRN (21:03)
[2021-12-09 05:01] VITALS: BP 151/80
[2021-12-09] MEDS: HEPARIN SOD (PORCINE) 5000UNITS/ML 1ML VIAL/SYRINGE SQ SCH ×3 (05:04→20:49)
[2021-12-09] MEDS: HumaLOG INSULIN (NovoLOG) PER UNIT SC SCH ×4 (07:22→20:50)
[2021-12-09] MEDS: OMEPRAZOLE 20MG CAP PO SCH (08:04)
[2021-12-09] MEDS: ATORVASTATIN 20 MG TAB PO SCH (08:04)
[2021-12-09] MEDS: ASPIRIN 81MG ENTERIC TABLET PO SCH (08:04)
[2021-12-09] MEDS: TAMSULOSIN 0.4 MG CAP PO SCH (08:05)
[2021-12-09] MEDS: atenoloL 25 MG TAB PO SCH (08:05)
[2021-12-09] MEDS: SENOKOT S TAB PO SCH ×2 (08:05→20:49)
[2021-12-09] MEDS ORDERED: predniSONE 10 MG TAB PO ONE (09:00)
[2021-12-09] MEDS: QUEtiapine FUMARATE 25 MG TAB PO SCH (18:41)
[2021-12-10] MEDS: ACETAMINOPHEN TAB 650MG DOSE (2X325MG) PO PRN (04:56)
[2021-12-10] MEDS: HEPARIN SOD (PORCINE) 5000UNITS/ML 1ML VIAL/SYRINGE SQ SCH (04:56)
[2021-12-10 06:15] VITALS: BP 159/84
[2021-12-10] MEDS: ATORVASTATIN 20 MG TAB PO SCH (09:43)
[2021-12-10] MEDS: ASPIRIN 81MG ENTERIC TABLET PO SCH (09:43)
[2021-12-10] MEDS: TAMSULOSIN 0.4 MG CAP PO SCH (09:43)
[2021-12-10] MEDS: OMEPRAZOLE 20MG CAP PO SCH (09:44)
[2021-12-10] MEDS: SENOKOT S TAB PO SCH ×2 (09:44→20:23)
[2021-12-10] MEDS: atenoloL 25 MG TAB PO SCH (09:45)
[2021-12-10] MEDS: ENOXAPARIN 40MG/0.4ML SYRINGE (J1650 PER 10MG) SC SCH (14:09)
[2021-12-10] MEDS: QUEtiapine FUMARATE 25 MG TAB PO SCH (17:26)
[2021-12-10] MEDS: RAMELTEON 8 MG TAB (ROZEREM) PO PRN (20:23)
[2021-12-11 06:00] VITALS: BP 155/72
[2021-12-11] MEDS ORDERED: predniSONE 10 MG TAB PO ONE (09:00)
[2021-12-11] MEDS: SENOKOT S TAB PO SCH ×2 (09:00→20:23)
[2021-12-11] MEDS: OMEPRAZOLE 20MG CAP PO SCH (09:32)
[2021-12-11] MEDS: ATORVASTATIN 20 MG TAB PO SCH (09:32)
[2021-12-11] MEDS: TAMSULOSIN 0.4 MG CAP PO SCH (09:32)
[2021-12-11] MEDS: ASPIRIN 81MG ENTERIC TABLET PO SCH (09:32)
[2021-12-11] MEDS: atenoloL 25 MG TAB PO SCH (09:33)
[2021-12-11] MEDS: ENOXAPARIN 40MG/0.4ML SYRINGE (J1650 PER 10MG) SC SCH (09:34)
[2021-12-11] MEDS: QUEtiapine FUMARATE 25 MG TAB PO SCH (16:59)
[2021-12-12 06:00] VITALS: BP 133/64
[2021-12-12] MEDS: SENOKOT S TAB PO SCH ×2 (09:10→21:36)
[2021-12-12] MEDS: atenoloL 25 MG TAB PO SCH (09:11)
[2021-12-12] MEDS: OMEPRAZOLE 20MG CAP PO SCH (09:11)
[2021-12-12] MEDS: ATORVASTATIN 20 MG TAB PO SCH (09:11)
[2021-12-12] MEDS: ASPIRIN 81MG ENTERIC TABLET PO SCH (09:11)
[2021-12-12] MEDS: ENOXAPARIN 40MG/0.4ML SYRINGE (J1650 PER 10MG) SC SCH (09:12)
[2021-12-12] MEDS: TAMSULOSIN 0.4 MG CAP PO SCH (09:12)
[2021-12-12] MEDS: QUEtiapine FUMARATE 25 MG TAB PO SCH (18:09)
[2021-12-12] MEDS: RAMELTEON 8 MG TAB (ROZEREM) PO PRN (21:37)
[2021-12-13 05:25] VITALS: BP 142/63
[2021-12-13 09:24] LABS: BASO % 0.3 % (0.0-1.0); EOS # 0.1 10^3/uL (0.0-0.5); EOS % 1.2 % (0.0-3.0); HEMATOCRIT 33.4 % (42.0-52.0); HEMOGLOBIN 10.2 g/dl (13.5-17.5); LYMPH # 0.9 10^3/uL (1.5-5.0); LYMPH % 12.6 % (24.0-44.0); MEAN CORPUSCULAR HEMOGLOBIN 27.4 pg (27.0-33.0); MEAN CORPUSCULAR HGB CONC 30.5 g/dl (32.0-36.5); MEAN CORPUSCULAR VOLUME 89.8 fl (80.0-96.0); MONO # 0.6 10^3/uL (0.0-0.8); NEUTROPHILS # 5.3 10^3/uL (1.5-8.5); NEUTROPHILS % 76.5 % (36.0-66.0); PLATELET COUNT, AUTOMATED 135 10^3/uL (150-450); RED BLOOD COUNT 3.72 10^6/uL (4.30-6.10); WHITE BLOOD COUNT 6.9 10^3/uL (4.0-10.0)
[2021-12-13] MEDS: atenoloL 25 MG TAB PO SCH (09:57)
[2021-12-13] MEDS: ASPIRIN 81MG ENTERIC TABLET PO SCH (09:57)
[2021-12-13] MEDS: OMEPRAZOLE 20MG CAP PO SCH (09:57)
[2021-12-13] MEDS: SENOKOT S TAB PO SCH ×2 (09:57→19:57)
[2021-12-13] MEDS: ENOXAPARIN 40MG/0.4ML SYRINGE (J1650 PER 10MG) SC SCH (09:58)
[2021-12-13] MEDS: ATORVASTATIN 20 MG TAB PO SCH (09:58)
[2021-12-13] MEDS: TAMSULOSIN 0.4 MG CAP PO SCH (09:58)
[2021-12-13 10:01] LABS: ALBUMIN 2.2 GM/DL (3.2-5.2); ALT/SGPT 25 U/L (12-78); BILIRUBIN,TOTAL 0.3 MG/DL (0.2-1.0); BLOOD UREA NITROGEN 18 MG/DL (7-18); CALCIUM LEVEL 9.3 MG/DL (8.8-10.2); CARBON DIOXIDE LEVEL 28 MEQ/L (21-32); CHLORIDE LEVEL 109 MEQ/L (98-107); CREATININE FOR GFR 0.98 MG/DL (0.70-1.30); GLOMERULAR FILTRATION RATE > 60.0 (>35); GLUCOSE, FASTING 132 MG/DL (70-100); MAGNESIUM LEVEL 1.4 MG/DL (1.8-2.4); POTASSIUM SERUM 3.5 MEQ/L (3.5-5.1); SODIUM LEVEL 143 MEQ/L (136-145); TOTAL PROTEIN 5.6 GM/DL (6.4-8.2)
[2021-12-13] MEDS: QUEtiapine FUMARATE 25 MG TAB PO SCH (17:26)
[2021-12-13] MEDS: ACETAMINOPHEN TAB 650MG DOSE (2X325MG) PO PRN (19:56)
[2021-12-13] MEDS: RAMELTEON 8 MG TAB (ROZEREM) PO PRN (19:57)
[2021-12-14 06:00] VITALS: BP 141/64
[2021-12-14] MEDS: atenoloL 25 MG TAB PO SCH (09:00)
[2021-12-14] MEDS: ENOXAPARIN 40MG/0.4ML SYRINGE (J1650 PER 10MG) SC SCH (10:04)
[2021-12-14] MEDS: ACETAMINOPHEN TAB 650MG DOSE (2X325MG) PO PRN ×3 (10:04→19:52)
[2021-12-14] MEDS: ASPIRIN 81MG ENTERIC TABLET PO SCH (10:04)
[2021-12-14] MEDS: ATORVASTATIN 20 MG TAB PO SCH (10:05)
[2021-12-14] MEDS: TAMSULOSIN 0.4 MG CAP PO SCH (10:05)
[2021-12-14] MEDS: OMEPRAZOLE 20MG CAP PO SCH (10:05)
[2021-12-14] MEDS: SENOKOT S TAB PO SCH ×2 (10:05→19:52)
[2021-12-14 13:48] LABS: BASO % 0.2 % (0.0-1.0); EOS % 0.4 % (0.0-3.0); HEMATOCRIT 33.7 % (42.0-52.0); HEMOGLOBIN 10.3 g/dl (13.5-17.5); LYMPH # 1.2 10^3/uL (1.5-5.0); LYMPH % 12.9 % (24.0-44.0); MEAN CORPUSCULAR HEMOGLOBIN 27.5 pg (27.0-33.0); MEAN CORPUSCULAR HGB CONC 30.6 g/dl (32.0-36.5); MEAN CORPUSCULAR VOLUME 90.1 fl (80.0-96.0); MONO # 0.7 10^3/uL (0.0-0.8); MONO % 8.1 % (2.0-8.0); NEUTROPHILS % 78.1 % (36.0-66.0); PLATELET COUNT, AUTOMATED 151 10^3/uL (150-450); RED BLOOD COUNT 3.74 10^6/uL (4.30-6.10); WHITE BLOOD COUNT 8.9 10^3/uL (4.0-10.0)
[2021-12-14 14:14] LABS: BLOOD UREA NITROGEN 17 MG/DL (7-18); C REACTIVE PROTEIN QUANTITATIV 8.68 MG/DL (0.00-0.30); CALCIUM LEVEL 9.2 MG/DL (8.8-10.2); CARBON DIOXIDE LEVEL 29 MEQ/L (21-32); CHLORIDE LEVEL 108 MEQ/L (98-107); CREATININE FOR GFR 0.94 MG/DL (0.70-1.30); GLOMERULAR FILTRATION RATE > 60.0 (>35); GLUCOSE, FASTING 84 MG/DL (70-100); POTASSIUM SERUM 4.1 MEQ/L (3.5-5.1); SODIUM LEVEL 142 MEQ/L (136-145)
[2021-12-14 14:27] LABS: ERYTHROCYTE SEDIMENTATION RATE 64 mm/hr (0-20)
[2021-12-14] MEDS: QUEtiapine FUMARATE 25 MG TAB PO SCH (17:21)
[2021-12-14] MEDS: RAMELTEON 8 MG TAB (ROZEREM) PO PRN (19:52)
[2021-12-14] MEDS ORDERED: COLCHICINE 0.6 MG TABLET PO ONE (20:35)
[2021-12-14] MEDS: predniSONE 20 MG TAB PO SCH (21:36)
[2021-12-15] MEDS: AMPICILLIN SOD/SULBACTAM SOD 3 GM in D5W MINI-BAG PLUS 100 ML IV SCH ×4 (06:31→23:59)
[2021-12-15 06:40] LABS: BASO % 0.2 % (0.0-1.0); HEMATOCRIT 32.3 % (42.0-52.0); LYMPH # 0.5 10^3/uL (1.5-5.0); LYMPH % 9.4 % (24.0-44.0); MEAN CORPUSCULAR HEMOGLOBIN 27.9 pg (27.0-33.0); MEAN CORPUSCULAR VOLUME 90.2 fl (80.0-96.0); MONO # 0.1 10^3/uL (0.0-0.8); MONO % 1.7 % (2.0-8.0); NEUTROPHILS # 4.2 10^3/uL (1.5-8.5); NEUTROPHILS % 88.3 % (36.0-66.0); PLATELET COUNT, AUTOMATED 141 10^3/uL (150-450); RED BLOOD COUNT 3.58 10^6/uL (4.30-6.10); WHITE BLOOD COUNT 4.8 10^3/uL (4.0-10.0)
[2021-12-15 06:41] VITALS: BP 137/66
[2021-12-15 07:14] LABS: ALBUMIN 2.2 GM/DL (3.2-5.2); ALT/SGPT 15 U/L (12-78); BILIRUBIN,TOTAL 0.3 MG/DL (0.2-1.0); BLOOD UREA NITROGEN 21 MG/DL (7-18); CARBON DIOXIDE LEVEL 29 MEQ/L (21-32); CHLORIDE LEVEL 109 MEQ/L (98-107); CREATININE FOR GFR 1.09 MG/DL (0.70-1.30); GLOMERULAR FILTRATION RATE > 60.0 (>35); GLUCOSE, FASTING 127 MG/DL (70-100); MAGNESIUM LEVEL 1.4 MG/DL (1.8-2.4); POTASSIUM SERUM 4.2 MEQ/L (3.5-5.1); SODIUM LEVEL 141 MEQ/L (136-145); TOTAL PROTEIN 5.9 GM/DL (6.4-8.2)
[2021-12-15] MEDS: SENOKOT S TAB PO SCH ×2 (08:11→21:00)
[2021-12-15] MEDS: ASPIRIN 81MG ENTERIC TABLET PO SCH (08:11)
[2021-12-15] MEDS: OMEPRAZOLE 20MG CAP PO SCH (08:11)
[2021-12-15] MEDS: COLCHICINE 0.6 MG TABLET PO SCH (08:11)
[2021-12-15] MEDS: TAMSULOSIN 0.4 MG CAP PO SCH (08:12)
[2021-12-15] MEDS: predniSONE 20 MG TAB PO SCH (08:12)
[2021-12-15] MEDS: ATORVASTATIN 20 MG TAB PO SCH (08:12)
[2021-12-15] MEDS: atenoloL 25 MG TAB PO SCH (08:12)
[2021-12-15] MEDS: ENOXAPARIN 40MG/0.4ML SYRINGE (J1650 PER 10MG) SC SCH (08:12)
[2021-12-15 08:53] LABS: ERYTHROCYTE SEDIMENTATION RATE 66 mm/hr (0-20)
[2021-12-15 14:12] LABS: URIC ACID 7.3 MG/DL (3.5-7.2)
[2021-12-15 14:49] VITALS: BP 133/64
[2021-12-15] MEDS: QUEtiapine FUMARATE 25 MG TAB PO SCH (17:45)
[2021-12-15] MEDS: RAMELTEON 8 MG TAB (ROZEREM) PO PRN (20:27)
[2021-12-15] MEDS: ACETAMINOPHEN TAB 650MG DOSE (2X325MG) PO PRN (20:27)
[2021-12-15 22:00] VITALS: BP 134/64
[2021-12-16] MEDS: AMPICILLIN SOD/SULBACTAM SOD 3 GM in D5W MINI-BAG PLUS 100 ML IV SCH (05:18)
[2021-12-16 06:00] VITALS: BP 131/64
[2021-12-16 08:20] LABS: HEMATOCRIT 30.8 % (42.0-52.0); HEMOGLOBIN 9.5 g/dl (13.5-17.5); LYMPH # 0.9 10^3/uL (1.5-5.0); LYMPH % 13.6 % (24.0-44.0); MEAN CORPUSCULAR HEMOGLOBIN 27.5 pg (27.0-33.0); MEAN CORPUSCULAR HGB CONC 30.8 g/dl (32.0-36.5); MEAN CORPUSCULAR VOLUME 89.3 fl (80.0-96.0); MONO # 0.5 10^3/uL (0.0-0.8); MONO % 8.2 % (2.0-8.0); NEUTROPHILS % 77.9 % (36.0-66.0); PLATELET COUNT, AUTOMATED 151 10^3/uL (150-450); RED BLOOD COUNT 3.45 10^6/uL (4.30-6.10); WHITE BLOOD COUNT 6.4 10^3/uL (4.0-10.0)
[2021-12-16 08:37] LABS: C REACTIVE PROTEIN QUANTITATIV 5.27 MG/DL (0.00-0.30); CALCIUM LEVEL 8.3 MG/DL (8.8-10.2); CREATININE FOR GFR 1.27 MG/DL (0.70-1.30); GLOMERULAR FILTRATION RATE 57.4 (>35); POTASSIUM SERUM 3.6 MEQ/L (3.5-5.1)
[2021-12-16 08:51] LABS: ERYTHROCYTE SEDIMENTATION RATE 30 mm/hr (0-20)
[2021-12-16] MEDS: ENOXAPARIN 40MG/0.4ML SYRINGE (J1650 PER 10MG) SC SCH (09:07)
[2021-12-16] MEDS: OMEPRAZOLE 20MG CAP PO SCH (09:08)
[2021-12-16] MEDS: ATORVASTATIN 20 MG TAB PO SCH (09:08)
[2021-12-16] MEDS: SENOKOT S TAB PO SCH ×2 (09:09→19:38)
[2021-12-16] MEDS: COLCHICINE 0.6 MG TABLET PO SCH (09:09)
[2021-12-16] MEDS: TAMSULOSIN 0.4 MG CAP PO SCH (09:09)
[2021-12-16] MEDS: predniSONE 20 MG TAB PO SCH (09:10)
[2021-12-16] MEDS: atenoloL 25 MG TAB PO SCH (09:11)
[2021-12-16] MEDS: ASPIRIN 81MG ENTERIC TABLET PO SCH (09:11)
[2021-12-16 14:00] VITALS: BP 126/63
[2021-12-16] MEDS: RAMELTEON 8 MG TAB (ROZEREM) PO PRN (19:36)
[2021-12-16] MEDS: ACETAMINOPHEN TAB 650MG DOSE (2X325MG) PO PRN (19:36)
[2021-12-16] MEDS: QUEtiapine FUMARATE 25 MG TAB PO SCH (19:36)
[2021-12-17 06:00] VITALS: BP 130/78
[2021-12-17] MEDS: OMEPRAZOLE 20MG CAP PO SCH (08:57)
[2021-12-17] MEDS: COLCHICINE 0.6 MG TABLET PO SCH (08:57)
[2021-12-17] MEDS: SENOKOT S TAB PO SCH ×2 (08:57→20:05)
[2021-12-17] MEDS: ATORVASTATIN 20 MG TAB PO SCH (08:57)
[2021-12-17] MEDS: predniSONE 20 MG TAB PO SCH (08:58)
[2021-12-17] MEDS: ASPIRIN 81MG ENTERIC TABLET PO SCH (08:58)
[2021-12-17] MEDS: atenoloL 25 MG TAB PO SCH (08:58)
[2021-12-17] MEDS: TAMSULOSIN 0.4 MG CAP PO SCH (08:58)
[2021-12-17] MEDS: ENOXAPARIN 40MG/0.4ML SYRINGE (J1650 PER 10MG) SC SCH (08:59)
[2021-12-17] MEDS: RAMELTEON 8 MG TAB (ROZEREM) PO PRN (19:18)
[2021-12-17] MEDS: QUEtiapine FUMARATE 25 MG TAB PO SCH (19:18)
[2021-12-17] MEDS: ACETAMINOPHEN TAB 650MG DOSE (2X325MG) PO PRN (19:19)
[2021-12-18 06:00] VITALS: BP 110/52
[2021-12-18] MEDS: SENOKOT S TAB PO SCH ×2 (09:21→21:00)
[2021-12-18] MEDS: OMEPRAZOLE 20MG CAP PO SCH (09:21)
[2021-12-18] MEDS: predniSONE 20 MG TAB PO SCH (09:22)
[2021-12-18] MEDS: ATORVASTATIN 20 MG TAB PO SCH (09:22)
[2021-12-18] MEDS: TAMSULOSIN 0.4 MG CAP PO SCH (09:22)
[2021-12-18] MEDS: ASPIRIN 81MG ENTERIC TABLET PO SCH (09:22)
[2021-12-18] MEDS: atenoloL 25 MG TAB PO SCH (09:22)
[2021-12-18] MEDS: ENOXAPARIN 40MG/0.4ML SYRINGE (J1650 PER 10MG) SC SCH (09:23)
[2021-12-18] MEDS: COLCHICINE 0.6 MG TABLET PO SCH (09:23)
[2021-12-18] MEDS: RAMELTEON 8 MG TAB (ROZEREM) PO PRN (20:28)
[2021-12-18] MEDS: QUEtiapine FUMARATE 25 MG TAB PO SCH (20:28)
[2021-12-18] MEDS: ACETAMINOPHEN TAB 650MG DOSE (2X325MG) PO PRN (20:29)
[2021-12-19 06:00] VITALS: BP 150/77
[2021-12-19] MEDS: SENOKOT S TAB PO SCH ×2 (09:10→19:43)
[2021-12-19] MEDS: ENOXAPARIN 40MG/0.4ML SYRINGE (J1650 PER 10MG) SC SCH (09:10)
[2021-12-19] MEDS: OMEPRAZOLE 20MG CAP PO SCH (09:10)
[2021-12-19] MEDS: TAMSULOSIN 0.4 MG CAP PO SCH (09:11)
[2021-12-19] MEDS: COLCHICINE 0.6 MG TABLET PO SCH (09:11)
[2021-12-19] MEDS: atenoloL 25 MG TAB PO SCH (09:11)
[2021-12-19] MEDS: ASPIRIN 81MG ENTERIC TABLET PO SCH (09:11)
[2021-12-19] MEDS: ATORVASTATIN 20 MG TAB PO SCH (09:11)
[2021-12-19] MEDS: RAMELTEON 8 MG TAB (ROZEREM) PO PRN (19:42)
[2021-12-19] MEDS: ACETAMINOPHEN TAB 650MG DOSE (2X325MG) PO PRN (19:43)
[2021-12-19] MEDS: QUEtiapine FUMARATE 25 MG TAB PO SCH (19:43)
[2021-12-20 06:00] VITALS: BP 134/62
[2021-12-20] MEDS: ATORVASTATIN 20 MG TAB PO SCH (08:58)
[2021-12-20] MEDS: ENOXAPARIN 40MG/0.4ML SYRINGE (J1650 PER 10MG) SC SCH (08:58)
[2021-12-20] MEDS: TAMSULOSIN 0.4 MG CAP PO SCH (08:58)
[2021-12-20] MEDS: SENOKOT S TAB PO SCH ×2 (08:59→19:31)
[2021-12-20] MEDS: ASPIRIN 81MG ENTERIC TABLET PO SCH (08:59)
[2021-12-20] MEDS: OMEPRAZOLE 20MG CAP PO SCH (08:59)
[2021-12-20] MEDS: atenoloL 25 MG TAB PO SCH (08:59)
[2021-12-20] MEDS: RAMELTEON 8 MG TAB (ROZEREM) PO PRN (19:31)
[2021-12-20] MEDS: QUEtiapine FUMARATE 25 MG TAB PO SCH (19:31)
[2021-12-20] MEDS: ACETAMINOPHEN TAB 650MG DOSE (2X325MG) PO PRN (19:32)
[2021-12-21 06:00] VITALS: BP 135/64
[2021-12-21] MEDS: OMEPRAZOLE 20MG CAP PO SCH (08:58)
[2021-12-21] MEDS: ATORVASTATIN 20 MG TAB PO SCH (08:58)
[2021-12-21] MEDS: ASPIRIN 81MG ENTERIC TABLET PO SCH (08:58)
[2021-12-21] MEDS: SENOKOT S TAB PO SCH ×2 (08:58→19:52)
[2021-12-21] MEDS: atenoloL 25 MG TAB PO SCH (08:58)
[2021-12-21] MEDS: TAMSULOSIN 0.4 MG CAP PO SCH (08:58)
[2021-12-21] MEDS: ENOXAPARIN 40MG/0.4ML SYRINGE (J1650 PER 10MG) SC SCH (08:59)
[2021-12-21] MEDS: QUEtiapine FUMARATE 25 MG TAB PO SCH (19:51)
[2021-12-21] MEDS: RAMELTEON 8 MG TAB (ROZEREM) PO PRN (19:52)
[2021-12-21] MEDS: ACETAMINOPHEN TAB 650MG DOSE (2X325MG) PO PRN (19:52)
[2021-12-22 05:54] VITALS: BP 165/86
[2021-12-22] MEDS: ENOXAPARIN 40MG/0.4ML SYRINGE (J1650 PER 10MG) SC SCH (09:03)
[2021-12-22] MEDS: SENOKOT S TAB PO SCH (09:03)
[2021-12-22] MEDS: ATORVASTATIN 20 MG TAB PO SCH (09:04)
[2021-12-22] MEDS: OMEPRAZOLE 20MG CAP PO SCH (09:06)
[2021-12-22] MEDS: ASPIRIN 81MG ENTERIC TABLET PO SCH (09:06)
[2021-12-22] MEDS: TAMSULOSIN 0.4 MG CAP PO SCH (09:06)
[2021-12-22 09:07] VITALS: BP 165/86
[2021-12-22] MEDS: atenoloL 25 MG TAB PO SCH (09:07)
[2021-12-22] MEDS ORDERED: SENN-52 PO (10:59)
[2021-12-22] MEDS ORDERED: QUET1TAB17 PO (10:59)
[2021-12-22] MEDS ORDERED: AMLO1TAB25 PO (10:59)
[2021-12-22] MEDS ORDERED: RAME8TAB2 PO (10:59)
[2021-12-22] MEDS ORDERED: ATOR1TAB21 PO (10:59)
== END 2021-12-22 12:10 | DRG 872 ==
LOC: EDBD 11:45 → EDSEX 11:45 → M ED 11:45 → M ED INP 15:34 → INTOOBSV 15:34 → ENRESERV 11-25 08:43 → M MS5PR 11-25 09:45 → OBSVTOIN 12-01 14:01
PROVIDERS: ADMIT Internal Medicine; ATTEND Internal Medicine
DX: A41.9 Sepsis, unspecified organism (principal); N18.4 Chronic kidney disease, stage 4 (severe); L03.113 Cellulitis of right upper limb; L03.114 Cellulitis of left upper limb; N17.9 Acute kidney failure, unspecified; I12.9 Hypertensive chronic kidney disease with stage 1 through stage 4 chronic kidney disease, or unspecified chronic kidney disease; Z86.16 Personal history of COVID-19; E87.6 Hypokalemia; E78.5 Hyperlipidemia, unspecified; K21.9 Gastro-esophageal reflux disease without esophagitis; M10.9 Gout, unspecified; Z85.118 Personal history of other malignant neoplasm of bronchus and lung; Z90.2 Acquired absence of lung [part of]; N40.0 Benign prostatic hyperplasia without lower urinary tract symptoms; I73.9 Peripheral vascular disease, unspecified; E21.0 Primary hyperparathyroidism; Z98.41 Cataract extraction status, right eye; Z98.42 Cataract extraction status, left eye; E11.22 Type 2 diabetes mellitus with diabetic chronic kidney disease; G31.84 Mild cognitive impairment of uncertain or unknown etiology

== ENCOUNTER → 2021-12-30 | Outpatient (REF) | payer MEDICARE, MEDICAID ==
[~2021-12-30] MED LIST changes: +AMLO1TAB25 PO; +ATOR1TAB21 PO; +QUET1TAB17 PO; +RAME8TAB2 PO; +SENN-52 PO
[2021-12-30 14:32] LABS: HEMATOCRIT 34.5 % (42.0-52.0); HEMOGLOBIN 10.7 g/dl (13.5-17.5); MEAN CORPUSCULAR HEMOGLOBIN 27.5 pg (27.0-33.0); MEAN CORPUSCULAR VOLUME 88.7 fl (80.0-96.0); PLATELET COUNT, AUTOMATED 276 10^3/uL (150-450); RED BLOOD COUNT 3.89 10^6/uL (4.30-6.10); WHITE BLOOD COUNT 7.5 10^3/uL (4.0-10.0)
[2021-12-30 15:05] LABS: ALBUMIN 2.8 GM/DL (3.2-5.2); BILIRUBIN,TOTAL 0.5 MG/DL (0.2-1.0); CALCIUM LEVEL 9.7 MG/DL (8.8-10.2); CREATININE FOR GFR 1.42 MG/DL (0.70-1.30); GLOMERULAR FILTRATION RATE 50.4 (>35); POTASSIUM SERUM 4.1 MEQ/L (3.5-5.1); TOTAL PROTEIN 5.9 GM/DL (6.4-8.2)
== END ==
LOC: SKLAB6 07:00
PROVIDERS: ATTEND Neuromusculoskeletal Medicine & OMM
DX: N18.9 Chronic kidney disease, unspecified (principal)

== ENCOUNTER → 2022-01-05 | Outpatient (REF) | payer MEDICARE, MEDICAID ==
[2022-01-05 11:58] LABS: HEMATOCRIT 36.5 % (42.0-52.0); MEAN CORPUSCULAR HEMOGLOBIN 27.6 pg (27.0-33.0); MEAN CORPUSCULAR HGB CONC 30.1 g/dl (32.0-36.5); MEAN CORPUSCULAR VOLUME 91.5 fl (80.0-96.0); PLATELET COUNT, AUTOMATED 275 10^3/uL (150-450); RED BLOOD COUNT 3.99 10^6/uL (4.30-6.10); WHITE BLOOD COUNT 7.1 10^3/uL (4.0-10.0)
[2022-01-05 12:22] LABS: ALBUMIN 3.1 GM/DL (3.2-5.2); BILIRUBIN,TOTAL 0.3 MG/DL (0.2-1.0); CALCIUM LEVEL 10.4 MG/DL (8.8-10.2); CREATININE FOR GFR 1.39 MG/DL (0.70-1.30); GLOMERULAR FILTRATION RATE 51.7 (>35); PHOSPHORUS LEVEL 3.3 MG/DL (2.5-4.9); TOTAL PROTEIN 6.8 GM/DL (6.4-8.2)
[2022-01-05 22:45] LABS: MAGNESIUM LEVEL 1.5 MG/DL (1.7-2.2)
== END ==
LOC: SKLAB6 14:02
PROVIDERS: ATTEND Neuromusculoskeletal Medicine & OMM
DX: I10 Essential (primary) hypertension (principal); R60.0 Localized edema; F03.90 Unspecified dementia, unspecified severity, without behavioral disturbance, psychotic disturbance, mood disturbance, and anxiety

== ENCOUNTER → 2022-04-25 | Outpatient (REF) | payer MEDICARE, MEDICAID ==
[2022-04-25 15:49] LABS: APPEARANCE, URINE CLEAR (CLEAR); BACTERIA, URINE AUTO NEGATIVE (NEGATIVE); BILIRUBIN, URINE AUTO NEGATIVE (NEGATIVE); BLOOD, URINE BLOOD NEGATIVE (NEGATIVE); COLOR, URINE YELLOW (YELLOW); GLUCOSE, URINE (UA) AUTO NEGATIVE (NEGATIVE); KETONE, URINE AUTO NEGATIVE (NEGATIVE); LEUKOCYTE ESTERASE, URINE AUTO NEGATIVE (NEGATIVE); NITRITE, URINE AUTO NEGATIVE (NEGATIVE); PROTEIN, URINE AUTO NEGATIVE (NEGATIVE); RBC, URINE AUTO 0 /HPF (0-3); SPECIFIC GRAVITY URINE AUTO 1.012 (1.002-1.035); SQUAMOUS EPITHELIAL CELL UR AU 0 /HPF (0-6); UROBILINOGEN, URINE AUTO 0.2 mg/dL (0.0-2.0); WBC, URINE AUTO 0 /HPF (0-3)
== END ==
LOC: SKLAB6 15:15
PROVIDERS: ATTEND Neuromusculoskeletal Medicine & OMM
DX: R41.82 Altered mental status, unspecified (principal)

== ENCOUNTER → 2022-06-08 | Outpatient (REF) | payer MEDICARE, MEDICAID ==
[2022-06-08 09:08] LABS: HEMATOCRIT 34.7 % (42.0-52.0); MEAN CORPUSCULAR HEMOGLOBIN 28.8 pg (27.0-33.0); MEAN CORPUSCULAR HGB CONC 31.7 g/dl (32.0-36.5); MEAN CORPUSCULAR VOLUME 90.8 fl (80.0-96.0); PLATELET COUNT, AUTOMATED 199 10^3/uL (150-450); RED BLOOD COUNT 3.82 10^6/uL (4.30-6.10); WHITE BLOOD COUNT 4.9 10^3/uL (4.0-10.0)
[2022-06-08 09:41] LABS: ALBUMIN 3.4 GM/DL (3.2-5.2); BILIRUBIN,TOTAL 0.5 MG/DL (0.2-1.0); CALCIUM LEVEL 10.4 MG/DL (8.8-10.2); CREATININE FOR GFR 1.53 MG/DL (0.70-1.30); GLOMERULAR FILTRATION RATE 46.3 (>35); POTASSIUM SERUM 4.1 MEQ/L (3.5-5.1)
== END ==
LOC: SKLAB6 08:00
PROVIDERS: ATTEND Neuromusculoskeletal Medicine & OMM
DX: F03.90 Unspecified dementia, unspecified severity, without behavioral disturbance, psychotic disturbance, mood disturbance, and anxiety (principal); I10 Essential (primary) hypertension; R60.9 Edema, unspecified

== ENCOUNTER → 2022-07-17 | Outpatient (CLI) | payer MEDICARE, MEDICAID | LOC: M RAD 11:27 | PROVIDERS: ATTEND Neuromusculoskeletal Medicine & OMM | DX: M25.572 Pain in left ankle and joints of left foot (principal); M85.872 Other specified disorders of bone density and structure, left ankle and foot; M77.32 Calcaneal spur, left foot ==

== ENCOUNTER → 2022-07-17 | Outpatient (REF) | payer MEDICARE, MEDICAID | LOC: SKLAB6 10:03 | PROVIDERS: ATTEND Nurse Practitioner Family | DX: Z53.9 Procedure and treatment not carried out, unspecified reason (principal) ==

== ENCOUNTER → 2022-07-18 | Outpatient (REF) | payer MEDICARE, MEDICAID ==
[2022-07-18 13:06] LABS: HEMOGLOBIN 10.4 g/dl (13.5-17.5); MEAN CORPUSCULAR HGB CONC 31.5 g/dl (32.0-36.5); MEAN CORPUSCULAR VOLUME 91.9 fl (80.0-96.0); PLATELET COUNT, AUTOMATED 163 10^3/uL (150-450); RED BLOOD COUNT 3.59 10^6/uL (4.30-6.10); WHITE BLOOD COUNT 9.3 10^3/uL (4.0-10.0)
[2022-07-18 13:37] LABS: CALCIUM LEVEL 10.1 MG/DL (8.8-10.2); CREATININE FOR GFR 1.8 MG/DL (0.70-1.30); GLOMERULAR FILTRATION RATE 38.4 (>35); POTASSIUM SERUM 3.4 MEQ/L (3.5-5.1); URIC ACID 10.5 MG/DL (3.5-7.2)
== END ==
LOC: SKLAB6 11:50
PROVIDERS: ATTEND Nurse Practitioner Family
DX: M10.9 Gout, unspecified (principal)

== ENCOUNTER → 2022-08-03 | Outpatient (REF) | LOC: SKLAB6 08:24 | PROVIDERS: ATTEND Neuromusculoskeletal Medicine & OMM | DX: D64.9 Anemia, unspecified (principal) ==

== ENCOUNTER → 2022-08-24 | Outpatient (REF) | payer MEDICARE, MEDICAID ==
[2022-08-24 10:37] LABS: CALCIUM LEVEL 9.7 MG/DL (8.8-10.2); CREATININE FOR GFR 1.41 MG/DL (0.70-1.30); GLOMERULAR FILTRATION RATE 50.9 (>35); POTASSIUM SERUM 3.8 MEQ/L (3.5-5.1)
== END ==
LOC: SKLAB6 08:00
PROVIDERS: ATTEND Nurse Practitioner Family
DX: N18.9 Chronic kidney disease, unspecified (principal)

== ENCOUNTER → 2022-08-24 | Outpatient (REF) | payer MEDICARE, MEDICAID ==
[2022-08-24 14:43] LABS: CALCIUM LEVEL 9.4 MG/DL (8.8-10.2); CREATININE FOR GFR 1.37 MG/DL (0.70-1.30); GLOMERULAR FILTRATION RATE 52.6 (>35)
== END ==
LOC: SKLAB6 08-18 14:05
PROVIDERS: ATTEND Nurse Practitioner Family
DX: F03.91 Unspecified dementia, unspecified severity, with behavioral disturbance (principal)

== ENCOUNTER → 2022-10-24 | Outpatient (REF) | payer MEDICARE, MEDICAID | LOC: SKLAB6 13:00 | PROVIDERS: ATTEND Internal Medicine | DX: M25.571 Pain in right ankle and joints of right foot (principal) ==

== ENCOUNTER → 2022-10-31 | Outpatient (REF) | payer MEDICARE, MEDICAID | LOC: SKLAB6 10-30 14:56 | PROVIDERS: ATTEND Nurse Practitioner Family | DX: Z53.8 Procedure and treatment not carried out for other reasons (principal) ==

== ENCOUNTER → 2022-11-14 | Outpatient (REF) | LOC: SKLAB6 02:36 | PROVIDERS: ATTEND Neuromusculoskeletal Medicine & OMM | DX: M79.89 Other specified soft tissue disorders (principal) ==

== ENCOUNTER → 2022-11-14 | Outpatient (REF) | payer MEDICARE, MEDICAID | LOC: SKLAB6 15:48 | PROVIDERS: ATTEND Nurse Practitioner Adult Health | DX: M86.9 Osteomyelitis, unspecified (principal); Z53.8 Procedure and treatment not carried out for other reasons ==

== ENCOUNTER → 2022-11-15 | Outpatient (REF) | payer MEDICARE, MEDICAID ==
[2022-11-15 14:19] LABS: HEMATOCRIT 32.2 % (42.0-52.0); HEMOGLOBIN 9.9 g/dl (13.5-17.5); MEAN CORPUSCULAR HEMOGLOBIN 28.1 pg (27.0-33.0); MEAN CORPUSCULAR HGB CONC 30.7 g/dl (32.0-36.5); MEAN CORPUSCULAR VOLUME 91.5 fl (80.0-96.0); PLATELET COUNT, AUTOMATED 190 10^3/uL (150-450); RED BLOOD COUNT 3.52 10^6/uL (4.30-6.10); WHITE BLOOD COUNT 5.7 10^3/uL (4.0-10.0)
[2022-11-15 14:36] LABS: CALCIUM LEVEL 10.1 MG/DL (8.3-10.6); CREATININE FOR GFR 1.58 MG/DL (0.70-1.30); GLOMERULAR FILTRATION RATE 44.5 (>35)
== END ==
LOC: SKLAB6 13:12
PROVIDERS: ATTEND Nurse Practitioner Adult Health
DX: M86.9 Osteomyelitis, unspecified (principal)

== ENCOUNTER → 2022-11-21 | Outpatient (REF) | payer MEDICARE, MEDICAID | LOC: SKLAB6 13:07 | PROVIDERS: ATTEND Nurse Practitioner Adult Health | DX: M79.89 Other specified soft tissue disorders (principal) ==

== ENCOUNTER → 2022-11-23 | Outpatient (REF) | payer MEDICARE, MEDICAID ==
[2022-11-23 14:50] LABS: HEMATOCRIT 36.4 % (42.0-52.0); HEMOGLOBIN 11.1 g/dl (13.5-17.5); MEAN CORPUSCULAR HEMOGLOBIN 28.5 pg (27.0-33.0); MEAN CORPUSCULAR HGB CONC 30.5 g/dl (32.0-36.5); MEAN CORPUSCULAR VOLUME 93.6 fl (80.0-96.0); PLATELET COUNT, AUTOMATED 245 10^3/uL (150-450); RED BLOOD COUNT 3.89 10^6/uL (4.30-6.10); WHITE BLOOD COUNT 6.8 10^3/uL (4.0-10.0)
== END ==
LOC: SKLAB6 12:17
PROVIDERS: ATTEND Internal Medicine
DX: L08.9 Local infection of the skin and subcutaneous tissue, unspecified (principal)

== ENCOUNTER → 2022-11-30 | Outpatient (CLI) | payer MEDICARE, MEDICAID | LOC: M SOG 10:15 | PROVIDERS: ATTEND Physician Assistant | DX: M79.641 Pain in right hand (principal); M85.841 Other specified disorders of bone density and structure, right hand; M19.041 Primary osteoarthritis, right hand ==

== ENCOUNTER → 2022-12-07 | Outpatient (REF) | payer MEDICARE, MEDICAID ==
[2022-12-07 08:22] LABS: HEMATOCRIT 31.6 % (42.0-52.0); HEMOGLOBIN 9.9 g/dl (13.5-17.5); MEAN CORPUSCULAR HEMOGLOBIN 28.8 pg (27.0-33.0); MEAN CORPUSCULAR HGB CONC 31.3 g/dl (32.0-36.5); MEAN CORPUSCULAR VOLUME 91.9 fl (80.0-96.0); PLATELET COUNT, AUTOMATED 130 10^3/uL (150-450); RED BLOOD COUNT 3.44 10^6/uL (4.30-6.10); WHITE BLOOD COUNT 3.9 10^3/uL (4.0-10.0)
[2022-12-07 08:41] LABS: ALBUMIN 2.8 G/DL (3.2-5.2); BILIRUBIN,TOTAL 0.4 MG/DL (0.3-1.2); CALCIUM LEVEL 9.4 MG/DL (8.3-10.6); CREATININE FOR GFR 1.24 MG/DL (0.70-1.30); GLOMERULAR FILTRATION RATE 58.8 (>35); POTASSIUM SERUM 4.1 MMOL/L (3.5-5.1); TOTAL PROTEIN 4.9 G/DL (5.7-8.2)
== END ==
LOC: SKLAB6 07:00
PROVIDERS: ATTEND Internal Medicine
DX: F03.90 Unspecified dementia, unspecified severity, without behavioral disturbance, psychotic disturbance, mood disturbance, and anxiety (principal); I10 Essential (primary) hypertension; R60.9 Edema, unspecified

== ENCOUNTER → 2023-01-01 | Outpatient (REF) | payer MEDICARE, MEDICAID ==
[2023-01-01 15:57] LABS: HEMATOCRIT 31.3 % (42.0-52.0); HEMOGLOBIN 9.9 g/dl (13.5-17.5); MEAN CORPUSCULAR HEMOGLOBIN 29.4 pg (27.0-33.0); MEAN CORPUSCULAR HGB CONC 31.6 g/dl (32.0-36.5); MEAN CORPUSCULAR VOLUME 92.9 fl (80.0-96.0); PLATELET COUNT, AUTOMATED 129 10^3/uL (150-450); RED BLOOD COUNT 3.37 10^6/uL (4.30-6.10); WHITE BLOOD COUNT 6.1 10^3/uL (4.0-10.0)
[2023-01-01 16:29] LABS: ALBUMIN 2.9 G/DL (3.2-5.2); ALKALINE PHOSPHATASE 86 U/L (46-116); ALT/SGPT 12 U/L (7.0-40); AST/SGOT 18 U/L (<34); BILIRUBIN,TOTAL 0.3 MG/DL (0.3-1.2); BLOOD UREA NITROGEN 21 MG/DL (9-23); CALCIUM LEVEL 9.4 MG/DL (8.3-10.6); CARBON DIOXIDE LEVEL 29 MMOL/L (20-31); CHLORIDE LEVEL 105 MMOL/L (98-107); CREATININE FOR GFR 1.21 MG/DL (0.70-1.30); GLOMERULAR FILTRATION RATE > 60.0 (>35); GLUCOSE, FASTING 150 MG/DL (74-106); POTASSIUM SERUM 3.9 MMOL/L (3.5-5.1); SODIUM LEVEL 141 MMOL/L (136-145); TOTAL PROTEIN 5.1 G/DL (5.7-8.2)
== END ==
LOC: SKLAB4 15:08
PROVIDERS: ATTEND Nurse Practitioner Adult Health
DX: U07.1 COVID-19 (principal); Z79.899 Other long term (current) drug therapy

== ENCOUNTER → 2023-01-04 | Outpatient (REF) | payer MEDICARE, MEDICAID ==
[2023-01-04 07:55] LABS: HEMATOCRIT 31.6 % (42.0-52.0); HEMOGLOBIN 9.8 g/dl (13.5-17.5); MEAN CORPUSCULAR HEMOGLOBIN 28.5 pg (27.0-33.0); MEAN CORPUSCULAR VOLUME 91.9 fl (80.0-96.0); PLATELET COUNT, AUTOMATED 133 10^3/uL (150-450); RED BLOOD COUNT 3.44 10^6/uL (4.30-6.10); WHITE BLOOD COUNT 4.1 10^3/uL (4.0-10.0)
[2023-01-04 08:53] LABS: ALBUMIN 2.8 G/DL (3.2-5.2); ALKALINE PHOSPHATASE 75 U/L (46-116); ALT/SGPT 11 U/L (7.0-40); AST/SGOT 17 U/L (<34); BILIRUBIN,TOTAL 0.4 MG/DL (0.3-1.2); BLOOD UREA NITROGEN 21 MG/DL (9-23); CALCIUM LEVEL 9.9 MG/DL (8.3-10.6); CARBON DIOXIDE LEVEL 30 MMOL/L (20-31); CHLORIDE LEVEL 109 MMOL/L (98-107); CREATININE FOR GFR 1.16 MG/DL (0.70-1.30); GLOMERULAR FILTRATION RATE > 60.0 (>35); GLUCOSE, FASTING 83 MG/DL (74-106); SODIUM LEVEL 143 MMOL/L (136-145); TOTAL PROTEIN 5.2 G/DL (5.7-8.2)
== END ==
LOC: SKLAB4 09:53
PROVIDERS: ATTEND Nurse Practitioner Adult Health
DX: U07.1 COVID-19 (principal); Z79.899 Other long term (current) drug therapy

== ENCOUNTER → 2023-01-08 | Outpatient (REF) | payer MEDICARE, MEDICAID ==
[2023-01-08 08:45] LABS: HEMATOCRIT 33.1 % (42.0-52.0); HEMOGLOBIN 10.2 g/dl (13.5-17.5); MEAN CORPUSCULAR HEMOGLOBIN 28.5 pg (27.0-33.0); MEAN CORPUSCULAR HGB CONC 30.8 g/dl (32.0-36.5); MEAN CORPUSCULAR VOLUME 92.5 fl (80.0-96.0); PLATELET COUNT, AUTOMATED 176 10^3/uL (150-450); RED BLOOD COUNT 3.58 10^6/uL (4.30-6.10); WHITE BLOOD COUNT 4.1 10^3/uL (4.0-10.0)
[2023-01-08 09:14] LABS: ALBUMIN 2.9 G/DL (3.2-5.2); ALKALINE PHOSPHATASE 77 U/L (46-116); ALT/SGPT < 9 U/L (7.0-40); AST/SGOT 9 U/L (<34); BILIRUBIN,TOTAL 0.3 MG/DL (0.3-1.2); BLOOD UREA NITROGEN 18 MG/DL (9-23); CALCIUM LEVEL 9.9 MG/DL (8.3-10.6); CARBON DIOXIDE LEVEL 27 MMOL/L (20-31); CHLORIDE LEVEL 110 MMOL/L (98-107); CREATININE FOR GFR 1.09 MG/DL (0.70-1.30); GLOMERULAR FILTRATION RATE > 60.0 (>35); GLUCOSE, FASTING 73 MG/DL (74-106); POTASSIUM SERUM 4.1 MMOL/L (3.5-5.1); SODIUM LEVEL 143 MMOL/L (136-145); TOTAL PROTEIN 5.4 G/DL (5.7-8.2)
== END ==
LOC: SKLAB6 08:22
PROVIDERS: ATTEND Nurse Practitioner Adult Health
DX: U07.1 COVID-19 (principal); Z79.899 Other long term (current) drug therapy

== ENCOUNTER → 2023-01-11 | Outpatient (REF) | payer MEDICARE, MEDICAID ==
[2023-01-11 10:22] LABS: HEMATOCRIT 33.4 % (42.0-52.0); HEMOGLOBIN 10.3 g/dl (13.5-17.5); MEAN CORPUSCULAR HEMOGLOBIN 28.5 pg (27.0-33.0); MEAN CORPUSCULAR HGB CONC 30.8 g/dl (32.0-36.5); MEAN CORPUSCULAR VOLUME 92.3 fl (80.0-96.0); PLATELET COUNT, AUTOMATED 211 10^3/uL (150-450); RED BLOOD COUNT 3.62 10^6/uL (4.30-6.10)
[2023-01-11 10:49] LABS: ALKALINE PHOSPHATASE 73 U/L (46-116); ALT/SGPT 12 U/L (7.0-40); AST/SGOT 16 U/L (<34); BILIRUBIN,TOTAL 0.4 MG/DL (0.3-1.2); BLOOD UREA NITROGEN 20 MG/DL (9-23); CALCIUM LEVEL 9.9 MG/DL (8.3-10.6); CARBON DIOXIDE LEVEL 29 MMOL/L (20-31); CHLORIDE LEVEL 107 MMOL/L (98-107); GLOMERULAR FILTRATION RATE > 60.0 (>35); GLUCOSE, FASTING 144 MG/DL (74-106); SODIUM LEVEL 143 MMOL/L (136-145); TOTAL PROTEIN 5.4 G/DL (5.7-8.2)
== END ==
LOC: SKLAB6 09:41
PROVIDERS: ATTEND Nurse Practitioner Adult Health
DX: U07.1 COVID-19 (principal); Z79.899 Other long term (current) drug therapy

== ENCOUNTER → 2023-06-21 | Outpatient (REF) | payer MEDICARE, MEDICAID ==
[2023-06-21 07:36] LABS: CALCIUM LEVEL 9.6 MG/DL (8.3-10.6); CREATININE FOR GFR 1.32 MG/DL (0.70-1.30); GLOMERULAR FILTRATION RATE 54.7 (>35); POTASSIUM SERUM 3.8 MMOL/L (3.5-5.1)
== END ==
LOC: SKLAB6 07:00
PROVIDERS: ATTEND Internal Medicine
DX: I10 Essential (primary) hypertension (principal)

== ENCOUNTER → 2024-03-05 | Outpatient (REF) | payer MEDICARE, MEDICAID ==
[~2024-03-05] MED LIST changes: +CEFD1CAP9 PO; -CEFD300C41 PO
[2024-03-05 11:29] LABS: HEMATOCRIT 33.7 % (42.0-52.0); HEMOGLOBIN 10.5 g/dl (13.5-17.5); MEAN CORPUSCULAR HGB CONC 31.2 g/dl (32.0-36.5); MEAN CORPUSCULAR VOLUME 96.3 fl (80.0-96.0); PLATELET COUNT, AUTOMATED 137 10^3/uL (150-450); WHITE BLOOD COUNT 4.3 10^3/uL (4.0-10.0)
[2024-03-05 11:44] LABS: ALBUMIN 2.9 G/DL (3.2-5.2); ALKALINE PHOSPHATASE 65 U/L (46-116); ALT/SGPT < 9 U/L (7.0-40); AST/SGOT 12 U/L (<34); BILIRUBIN,TOTAL 0.4 MG/DL (0.3-1.2); BLOOD UREA NITROGEN 20 MG/DL (9-23); CALCIUM LEVEL 9.6 MG/DL (8.3-10.6); CARBON DIOXIDE LEVEL 31 MMOL/L (20-31); CHLORIDE LEVEL 108 MMOL/L (98-107); GLOMERULAR FILTRATION RATE > 60.0 (>35); GLUCOSE, FASTING 98 MG/DL (74-106); POTASSIUM SERUM 4.1 MMOL/L (3.5-5.1); SODIUM LEVEL 143 MMOL/L (136-145); TOTAL PROTEIN 5.1 G/DL (5.7-8.2)
[2024-03-05 11:45] LABS: APPEARANCE, URINE CLEAR (CLEAR); BACTERIA, URINE AUTO NEGATIVE (NEGATIVE); BILIRUBIN, URINE AUTO NEGATIVE (NEGATIVE); BLOOD, URINE BLOOD NEGATIVE (NEGATIVE); COLOR, URINE YELLOW (YELLOW); GLUCOSE, URINE (UA) AUTO NEGATIVE (NEGATIVE); KETONE, URINE AUTO NEGATIVE (NEGATIVE); LEUKOCYTE ESTERASE, URINE AUTO NEGATIVE (NEGATIVE); NITRITE, URINE AUTO NEGATIVE (NEGATIVE); PROTEIN, URINE AUTO NEGATIVE (NEGATIVE); RBC, URINE AUTO 0 /HPF (0-3); SPECIFIC GRAVITY URINE AUTO 1.014 (1.002-1.035); SQUAMOUS EPITHELIAL CELL UR AU 0 /HPF (0-6); UROBILINOGEN, URINE AUTO 0.2 mg/dL (0.0-2.0); WBC, URINE AUTO 1 /HPF (0-3)
== END ==
LOC: SKLAB6 06:52
PROVIDERS: ATTEND Internal Medicine
DX: F03.90 Unspecified dementia, unspecified severity, without behavioral disturbance, psychotic disturbance, mood disturbance, and anxiety (principal); Z79.899 Other long term (current) drug therapy

== ENCOUNTER → 2024-06-05 | Outpatient (REF) | payer MEDICARE, MEDICAID ==
[2024-06-05 09:49] LABS: HEMATOCRIT 37.6 % (42.0-52.0); HEMOGLOBIN 11.8 g/dl (13.5-17.5); MEAN CORPUSCULAR HEMOGLOBIN 29.8 pg (27.0-33.0); MEAN CORPUSCULAR HGB CONC 31.4 g/dl (32.0-36.5); MEAN CORPUSCULAR VOLUME 94.9 fl (80.0-96.0); PLATELET COUNT, AUTOMATED 170 10^3/uL (150-450); RED BLOOD COUNT 3.96 10^6/uL (4.30-6.10)
[2024-06-05 10:17] LABS: ALBUMIN 3.5 G/DL (3.2-5.2); BILIRUBIN,TOTAL 0.6 MG/DL (0.3-1.2); CREATININE FOR GFR 1.25 MG/DL (0.70-1.30); GLOMERULAR FILTRATION RATE 58.2 (>35); POTASSIUM SERUM 3.8 MMOL/L (3.5-5.1)
== END ==
LOC: SKLAB6 07:40
PROVIDERS: ATTEND Internal Medicine
DX: F03.90 Unspecified dementia, unspecified severity, without behavioral disturbance, psychotic disturbance, mood disturbance, and anxiety (principal)

== ENCOUNTER → 2024-12-11 | Outpatient (REF) | payer MEDICARE, MEDICAID ==
[2024-12-11 11:29] LABS: HEMATOCRIT 34.8 % (42.0-52.0); HEMOGLOBIN 11.1 g/dl (13.5-17.5); MEAN CORPUSCULAR HEMOGLOBIN 30.2 pg (27.0-33.0); MEAN CORPUSCULAR HGB CONC 31.9 g/dl (32.0-36.5); MEAN CORPUSCULAR VOLUME 94.8 fl (80.0-96.0); PLATELET COUNT, AUTOMATED 148 10^3/uL (150-450); RED BLOOD COUNT 3.67 10^6/uL (4.30-6.10); WHITE BLOOD COUNT 3.8 10^3/uL (4.0-10.0)
[2024-12-11 12:07] LABS: ALBUMIN 3.2 G/DL (3.2-5.2); BILIRUBIN,TOTAL 0.5 MG/DL (0.3-1.2); CALCIUM LEVEL 9.5 MG/DL (8.3-10.6); CREATININE FOR GFR 1.27 MG/DL (0.70-1.30); POTASSIUM SERUM 3.9 MMOL/L (3.5-5.1); TOTAL PROTEIN 5.6 G/DL (5.7-8.2)
== END ==
LOC: SKLAB6 08:35
PROVIDERS: ATTEND Internal Medicine
DX: R60.9 Edema, unspecified (principal); I10 Essential (primary) hypertension; F03.90 Unspecified dementia, unspecified severity, without behavioral disturbance, psychotic disturbance, mood disturbance, and anxiety

== ENCOUNTER → 2025-06-08 | Outpatient (REF) | payer MEDICARE, MEDICAID ==
[~2025-06-08] MED LIST changes: -FLOM0.4C39 PO; +TAMS-18 PO
[2025-06-08 08:24] LABS: PLATELET COUNT, AUTOMATED 185 10^3/uL (150-450)
[2025-06-08 08:57] LABS: ALT/SGPT 17.0 U/L (7.0-40); AST/SGOT 20.0 U/L (<34); CALCIUM LEVEL 9.5 MG/DL (8.3-10.6); CARBON DIOXIDE LEVEL 29.0 MMOL/L (20-31); CHLORIDE LEVEL 104.0 MMOL/L (98-107); CREATININE FOR GFR 1.14 MG/DL (0.70-1.30); GLOMERULAR FILTRATION RATE 61.9 (>35); POTASSIUM SERUM 3.9 MMOL/L (3.5-5.1); SODIUM LEVEL 144.0 MMOL/L (136-145)
== END ==
LOC: SKLAB6 07:28
PROVIDERS: ATTEND Internal Medicine
DX: I10 Essential (primary) hypertension (principal); R60.9 Edema, unspecified; F03.90 Unspecified dementia, unspecified severity, without behavioral disturbance, psychotic disturbance, mood disturbance, and anxiety

== ENCOUNTER → 2025-07-01 | Outpatient (REF) | payer MEDICARE, MEDICAID ==
[2025-07-01 08:00] LABS: BASO # 0.0 10^3/uL (0.0-0.2); BASO % 0.9 % (0.0-1.0); EOS # 0.1 10^3/uL (0.0-0.5); EOS % 3.0 % (0.0-3.0); LYMPH # 1.4 10^3/uL (1.5-5.0); LYMPH % 29.0 % (24.0-44.0); MONO # 0.4 10^3/uL (0.0-0.8); MONO % 9.4 % (2.0-8.0); NEUTROPHILS # 2.7 10^3/uL (1.5-8.5); NEUTROPHILS % 57.5 % (36.0-66.0); PLATELET COUNT, AUTOMATED 155 10^3/uL (150-450)
[2025-07-01 08:28] LABS: ALT/SGPT 38.0 U/L (7.0-40); AST/SGOT 33.0 U/L (<34); CALCIUM LEVEL 9.7 MG/DL (8.3-10.6); CARBON DIOXIDE LEVEL 28.0 MMOL/L (20-31); CHLORIDE LEVEL 104.0 MMOL/L (98-107); CREATININE FOR GFR 1.23 MG/DL (0.70-1.30); GLOMERULAR FILTRATION RATE 56.5 (>35); POTASSIUM SERUM 4.4 MMOL/L (3.5-5.1); SODIUM LEVEL 141.0 MMOL/L (136-145)
== END ==
LOC: SKLAB6 06:46
PROVIDERS: ATTEND Internal Medicine
DX: Z79.899 Other long term (current) drug therapy (principal); R53.83 Other fatigue

== ENCOUNTER → 2025-11-04 | Outpatient (REF) | payer MEDICARE, MEDICAID | LOC: SKLAB6 10:49 | PROVIDERS: ATTEND Family Medicine | DX: Z11.2 Encounter for screening for other bacterial diseases (principal); Z20.818 Contact with and (suspected) exposure to other bacterial communicable diseases ==